=== PATIENT | male | born 1955 | race Caucasian/White ===

== ENCOUNTER 2019-06-19 07:47 | Outpatient (CLI) | payer MEDICARE, SELFPAY ==
[2019-06-19 13:31] LABS: Alanine Aminotransferase 26 U/L (4-50); Albumin Level 4.2 g/dL (3.5-5.1); Alkaline Phosphatase 61 U/L (38-126); Aspartate Amino Transferase 26 U/L (17-59); Bilirubin,Total 0.5 mg/dL (0.2-1.3); Blood Urea Nitrogen 9 mg/dL (9-20); Calcium 9.8 mg/dL (8.4-10.2); Carbon Dioxide 28 mmol/L (22-30); Chloride 94 mmol/L (98-107); Cholesterol 185 mg/dL (0-200); Estimated Glomerular Filt Rate > 60; Glucose 102 mg/dL (75-110); HDL Direct 46 mg/dL; Potassium 5.2 mmol/L (3.4-5.0); Sodium 135 mmol/L (137-145); Triglycerides 110 mg/dL (<150)
[2019-06-19 13:36] LABS: Hemoglobin A1C 5.7 % (<5.7)
[2019-06-19 13:43] LABS: LDL Cholesterol Direct 134 mg/dL
[2019-06-19 14:01] LABS: Prostate Specific Antigen 1.5 ng/mL (< OR = 4.0)
== END 2019-06-19 07:48 | disposition home or self-care (01) ==
LOC: ANHWCLAB 07:49
PROVIDERS: PCP Internal Medicine; Visit Provider Nurse Practitioner
DX: E78.5 Hyperlipidemia, unspecified (principal); Z12.5 Encounter for screening for malignant neoplasm of prostate; R73.02 Impaired glucose tolerance (oral)
CPT/HCPCS: 36415; 80053; 80061; 83036; 84153; G0103

== ENCOUNTER 2019-06-28 09:23 | Outpatient (CLI) | payer MEDICARE, SELFPAY ==
[2019-06-28 13:16] LABS: Blood Urea Nitrogen 5 mg/dL (9-20); Calcium 9.7 mg/dL (8.4-10.2); Carbon Dioxide 28 mmol/L (22-30); Chloride 91 mmol/L (98-107); Estimated Glomerular Filt Rate > 60; Glucose 97 mg/dL (75-110); Sodium 130 mmol/L (137-145)
== END 2019-06-28 09:24 | disposition home or self-care (01) ==
LOC: ANHWCLAB 09:26
PROVIDERS: PCP Internal Medicine; Visit Provider Nurse Practitioner
DX: E87.5 Hyperkalemia (principal)
CPT/HCPCS: 36415; 80048

== ENCOUNTER 2019-12-15 07:45 | Outpatient (CLI) | payer MEDICARE, SELFPAY ==
[2019-12-15 08:23] LABS: Hemoglobin A1C 5.5 % (<5.7)
[2019-12-15 08:26] LABS: Alanine Aminotransferase 31 U/L (4-50); Albumin Level 4.3 g/dL (3.5-5.1); Alkaline Phosphatase 64 U/L (38-126); Anion Gap 11.3 mmol/L (7-16); Aspartate Amino Transferase 31 U/L (17-59); Bilirubin,Total 0.6 mg/dL (0.2-1.3); Blood Urea Nitrogen 3 mg/dL (9-20); Calcium 9.4 mg/dL (8.4-10.2); Carbon Dioxide 26 mmol/L (22-30); Chloride 97 mmol/L (98-107); Cholesterol 139 mg/dL (0-200); Estimated Glomerular Filt Rate > 60; Glucose 111 mg/dL (75-110); HDL Direct 43 mg/dL; Potassium 4.3 mmol/L (3.4-5.0); Sodium 130 mmol/L (137-145); Triglycerides 91 mg/dL (<150)
[2019-12-15 08:37] LABS: LDL Cholesterol Direct 78 mg/dL
[2019-12-15 09:02] LABS: Free T4 Free Thyroxine 1.23 ng/mL (0.78-2.19)
== END 2019-12-15 07:46 | disposition home or self-care (01) ==
LOC: ANHLAB 07:48
PROVIDERS: PCP Internal Medicine; Visit Provider Nurse Practitioner
DX: E03.9 Hypothyroidism, unspecified (principal); R73.02 Impaired glucose tolerance (oral); Z79.899 Other long term (current) drug therapy; E78.2 Mixed hyperlipidemia
CPT/HCPCS: 36415; 80053; 80061; 82248; 83036; 84439; 84443

== ENCOUNTER 2020-05-03 10:39 | Emergency (ER) | payer MEDICARE, SELFPAY ==
--- NOTE | ~2020-05-03 | CT_ITS ---
EXAMINATION: CT brain wo con EXAM DATE: 05/03/2020 12:24 INDICATION: right leg hemiparesis. TECHNIQUE: Spiral CT of the head was performed without contrast. Axial, coronal and sagittal images were reviewed. The dose-length product (DLP) for this examination was 605.33 mGy-cm. The exposure w as tailored according to patient size, and iterative reconstruction (ASIR) was used as additional dos e reduction technique. There is no prior study for comparison. FINDINGS: There is no acute intraparenchymal hemorrhage. No evidence of intraparenchymal brain mass lesion. No evidence of acute infarction. Please note that initial head CT has limited sensitivity f or small or acute infarctions. There is an old small left cerebellar infarction. There is small old right pontine lacunar infarction. There is moderate periventricular and subcortical hypodensity, nons pecific but probably related to small vessel ischemic disease. There is mild prominence of the sulc i and ventricles related to cerebral atrophy. There is intracranial carotid arteriosclerosis. Ther e are no extra-axial collections. There is no mass effect or midline shift. Patient has had bilater al ocular lens surgery. Soft tissue is unremarkable. The visualized sinuses and mastoid air cells a re well aerated. IMPRESSION: 1. No acute intracranial findings. 2. Chronic age related findings. 3. Small old infarctions. Reviewed, dictated and finalized at location A. TECHNICAL ARCHITECT
--- NOTE | ~2020-05-03 | CT_ITS ---
EXAMINATION: CT lumbar spine wo [facility] EXAM DATE: 05/03/2020 12:24 INDICATION: low back pain, right leg weakness TECHNIQUE: Spiral CT of the lumbar spine was performed without contrast. Axial, coronal and sagittal images were reviewed. The dose-length product (DLP) for this examination was 426.05 mGy-cm. The e xposure was tailored according to patient size (auto mA exposure control), and iterative reconstructi on (ASIR) was used as additional dose reduction technique. There is no prior study for comparison. FINDINGS: Moderate disc disease L4-5, mild to moderate at the other lumbar levels. The vertebral bodi es are aligned in the AP dimension. There are no acute fractures identified. No spondylolysis. Partia lly fused sacroiliac joints. Level by level evaluation: T12-L1: There is a minimal diffuse disc bulge. Facet arthropathy: Mild bilateral. Neural foraminal stenosis: No stenosis. Central canal stenosis: No stenosis. L1-L2: There is a mild diffuse disc bulge. Facet arthropathy: Mild bilateral. Neural foraminal stenosis: No stenosis. Central canal stenosis: Mild. L2-L3: There is a mild to moderate diffuse disc bulge. Facet arthropathy: Mild. Neural foraminal stenosis: Moderate right, mild left. Central canal stenosis: Mild to moderate. L3-L4: There is a mild to moderate diffuse disc bulge. Facet arthropathy: Mild to moderate. Neural foraminal stenosis: Mild to moderate left, mild right. Central canal stenosis: Mild to moderate. L4-L5: There is a mild to moderate diffuse disc bulge. Facet arthropathy: Mild to moderate. Neural foraminal stenosis: Mild bilateral. Central canal stenosis: Mild to moderate. L5-S1: There is a mild to moderate diffuse disc bulge. Facet arthropathy: Mild. Neural foraminal stenosis: Mild right. Central canal stenosis: Mild. IMPRESSION: 1. L2-3 moderate right neural foraminal stenosis, the most narrowed level. 2. Otherwise mild to moderate lumbar spondylosis. 3. No acute findings. Reviewed, dictated and finalized at location A. [employer]
[2020-05-03 10:47] VITALS: BP 154/72; PULSE 62; RESP 18; TEMP 36.8; O2SAT 99
[2020-05-03 12:09] LABS: Basophils Percent Auto 0.3 % (0.2-1.2); Eosinophils Absolute Auto 0.1 K/mm3 (0-0.3); Eosinophils Percent Auto 0.4 % (0-4.4); Hematocrit 46.2 % (42.0-52.0); Hemoglobin 16.4 g/dL (14.0-18.0); Immature Granulocyte Absolute 0.07 K/mm3 (0.00-0.031); Immature Granulocyte Percent A 0.6 % (0-0.5); Lymphocytes Absolute Auto 1.44 K/mm3 (0.9-3.2); Lymphocytes Percent Auto 12.4 % (18.3-44.2); Mean Corpuscular HGB Conc 35.5 g/dl (32-36); Mean Corpuscular Hemoglobin 34.2 pg (26-34); Mean Corpuscular Volume 96.5 fl (80-100); Monocytes Percent Auto 8.8 % (2.6-8.5); Neutrophils Percent Auto 77.5 % (45.5-73.1); Platelet Count Result 234 k/mm3 (150-375); Red Blood Count 4.79 M/mm3 (4.6-6.20); Red Cell Distribution Width 12.8 % (11.5-14.5); White Blood Count 11.6 K/mm3 (4.5-10.0)
--- NOTE | 2020-05-03 12:19 | ED.EXTPRO ---
HPI - Extremity Problem General Chief complaint: Extremity Problem,Nontraumatic <Griselda Ayala PA-C - Last Filed: 05/03/20 23:02> Stated complaint: rt leg pain leg won't work <LISA Latif Last Filed: 05/03/20 23:02> Time Seen by Provider: 05/03/20 11:35 <LISA Latif Last Filed: 05/03/20 23:02> Source: patient <LISA Latif Last Filed: 05/03/20 23:02> Mode of arrival: wheelchair <LISA Latif Last Filed: 05/03/20 23:02> Limitations: no limitations <LISA Latif Last Filed: 05/03/20 23:02> History of Present Illness HPI Narrative: This is a 65 year old male that presents to the ER for right leg weakness x 4 days. Reports he is unable to walk. Reports the leg just does not work right and it gives out. Reports he does have some issues with his lower back. Reports tingling in his toes on the right. Is scheduled for an MRI of his lumbar spine on Wednesday, but could not wait. He is currently on steroids and an anti-inflammatory. Denies fever, saddle anesthesia or bowel/bladder incontinence. <LISA Latif Last Filed: 05/03/20 23:02> Related Data Home medications: Home Medications Medication Instructions Recorded Confirmed sildenafil 100 mg tablet 100 mg PO DAILY PRN 06/13/19 05/01/20 <LISA Latif Last Filed: 05/03/20 23:02> Allergies/Adverse reactions: Allergies Allergy/AdvReac Type Severity Reaction Status Date / Time No Known Allergies Allergy Verified 05/01/20 12:26 <LISA Latif Last Filed: 05/03/20 23:02> Review of Systems Review of Systems: Narrative: CONSTITUTIONAL: Denies fever SKIN: Denies rash MUSCULOSKELETAL: Reports joint pain and myalgia NEUROLOGIC: Reports weakness. Denies numbness PSYCHIATRIC: Denies anxiety or depression. <LISA Latif Last Filed: 05/03/20 23:02> All systems reviewed & are unremarkable except as noted in HPI and below <Griselda Ayala PA-C - Last Filed: 05/03/20 23:02> [facility] Past Medical History Medical History: Medical History (Updated 05/04/20 @ 00:00 by Sheila Bush) IGT (impaired glucose tolerance) Mixed hyperlipidemia Thyroid disease <Griselda Ayala PA-C - Last Filed: 05/03/20 23:02> Surgical History Surgical History: Surgical History (Reviewed 06/16/19 @ 07:07 by Edwige Phillips [facility]) History of tonsillectomy <Griselda Ayala PA-C - Last Filed: 05/03/20 23:02> Family History Family History: Family History (Reviewed 06/16/19 @ 07:07 by Edwige Phillips [facility]) Mother Hypertension, Onset Age: 84 Acute myocardial infarction, Onset Age: 84 Family history of Alzheimer's disease, Onset Age: 84 Patient's mother is , Onset Age: 84 <Griselda Ayala PA-C - Last Filed: 05/03/20 23:02> Social History Social History: Social History (Reviewed 06/16/19 @ 07:07 by Edwige Phillips [facility]) Smoking status: Current every day smoker (pack aday) Alcohol intake: current <Griselda Ayala PA-C - Last Filed: 05/03/20 23:02> Exam Narrative: Exam Narrative: GENERAL: Well-appearing, well-nourished, and in no acute distress. HEAD: Normocephalic, atraumatic. EYES: PERRLA and EOMI. ENT: Nares clear, no rhinorrhea or epistaxis. Mucous membranes moist. Oropharynx without tonsillar hypertrophy exudate or other lesions. Bilateral TMs pearly garcia non-bulging NECK: Supple. No adenopathy or masses. CHEST: Clear to auscultation. No respiratory distress. No wheezes rales or rhonchi HEART: Regular rate and rhythm. No murmur heard. Normal peripheral pulses. BACK: No midline spinal tenderness EXTREMITIES: Normal range of motion. No edema. Strength equal in bilateral lower extremities (5/5). Normal patellar reflexes bilaterally SKIN: Warm, dry, no rash. NEURO: No focal deficits. Alert and oriented x3. PSYCH: Normal mood and affect <Griselda Ayala PA-C - Last Filed: 05/03/20 23
[2020-05-03 12:36] LABS: Erythrocyte Sedimentation Rate 16 mm/hr (0-20)
[2020-05-03 12:38] LABS: CRP < 0.5 mg/dL (<1.0)
[2020-05-03 12:58] LABS: Anion Gap 10 mmol/L (8-16); Blood Urea Nitrogen 16 mg/dL (9-20); Calcium 9.6 mg/dL (8.4-10.2); Carbon Dioxide 26 mmol/L (22-30); Chloride 97 mmol/L (98-107); Estimated CRCL calculation 79 ml/min; Estimated Glomerular Filt Rate > 60; Glucose 88 mg/dL (75-110); Sodium 133 mmol/L (137-145)
[2020-05-03 13:37] VITALS: BP 163/87; PULSE 78; RESP 18; O2SAT 99
[2020-05-03 14:37] VITALS: BP 148/72; PULSE 80; RESP 18; O2SAT 99
--- NOTE | 2020-05-03 15:39 | PC.NURSE ---
[facility] accepted transfer to [place] ETA 1730 ETA [id number]
--- NOTE | 2020-05-03 16:01 | PC.NURSE ---
report called to [facility]. felicia called for transport
--- NOTE | 2020-05-03 17:45 | PC.NURSE ---
New ETA for [facility] 1830
--- NOTE | 2020-05-03 19:01 | PC.NURSE ---
patient asking various staff members why he has not left the er. explained that a private ambulance company is being used and we have no control of their arrival time
[2020-05-03 19:09] VITALS: BP 150/85; PULSE 59; RESP 18; O2SAT 98
--- NOTE | 2020-05-03 19:18 | PC.NURSE ---
New ETA for [facility] is 1944
--- NOTE | 2020-05-03 19:27 | PC.NURSE ---
[facility] called with updated ETA....2015?
--- NOTE | 2020-05-03 20:30 | PC.NURSE ---
[facility] called with another updated ETA...2130.
--- NOTE | 2020-05-03 21:16 | PC.NURSE ---
[facility] called with updated ETA...[id number] due to call volume exceeding availability
[2020-05-03 22:30] VITALS: BP 147/57; PULSE 58; RESP 16; O2SAT 99
== END 2020-05-03 22:52 | disposition short-term general hospital (02) ==
PROVIDERS: Physician Assistant; Emergency Provider General Practice; PCP Internal Medicine
DX: M48.061 Spinal stenosis, lumbar region without neurogenic claudication (principal); E78.2 Mixed hyperlipidemia; E07.9 Disorder of thyroid, unspecified; F17.210 Nicotine dependence, cigarettes, uncomplicated; M47.816 Spondylosis without myelopathy or radiculopathy, lumbar region
CPT/HCPCS: 36415; 70450; 72131; 80048; 85025; 85652; 86140; 99285

== ENCOUNTER 2020-06-03 09:22 | Outpatient (CLI) | payer MEDICARE, SELFPAY ==
[2020-06-03 10:01] LABS: Hemoglobin A1C 5.6 % (<5.7)
[2020-06-03 10:02] LABS: Alanine Aminotransferase 31 U/L (4-50); Albumin Level 4.2 g/dL (3.5-5.1); Alkaline Phosphatase 53 U/L (38-126); Anion Gap 5 mmol/L (8-16); Aspartate Amino Transferase 28 U/L (17-59); Bilirubin,Total 0.5 mg/dL (0.2-1.3); Blood Urea Nitrogen 8 mg/dL (9-20); Calcium 9.6 mg/dL (8.4-10.2); Carbon Dioxide 29 mmol/L (22-30); Chloride 99 mmol/L (98-107); Cholesterol 140 mg/dL (0-200); Estimated Glomerular Filt Rate > 60; Glucose 104 mg/dL (75-110); HDL Direct 44 mg/dL; Potassium 4.2 mmol/L (3.4-5.0); Sodium 133 mmol/L (137-145); Triglycerides 96 mg/dL (<150)
[2020-06-03 10:12] LABS: LDL Cholesterol Direct 75 mg/dL
[2020-06-03 10:35] LABS: Prostate Specific Antigen 1.4 ng/mL (< OR = 4.0)
== END 2020-06-03 09:23 | disposition home or self-care (01) ==
PROVIDERS: PCP Internal Medicine; Visit Provider Internal Medicine
DX: R73.03 Prediabetes (principal); Z79.899 Other long term (current) drug therapy; E03.9 Hypothyroidism, unspecified; Z12.5 Encounter for screening for malignant neoplasm of prostate; E78.5 Hyperlipidemia, unspecified
CPT/HCPCS: 36415; 80053; 80061; 83036; 84153; 84443; G0103

== ENCOUNTER 2020-12-18 07:00 | Outpatient (CLI) | payer MEDICARE, SELFPAY ==
[2020-12-18 08:03] LABS: Alanine Aminotransferase 27 U/L (4-50); Albumin Level 4.5 g/dL (3.5-5.1); Alkaline Phosphatase 49 U/L (38-126); Anion Gap 8 mmol/L (8-16); Aspartate Amino Transferase 34 U/L (17-59); Bilirubin,Total 0.6 mg/dL (0.2-1.3); Blood Urea Nitrogen 8 mg/dL (9-20); Calcium 9.6 mg/dL (8.4-10.2); Carbon Dioxide 26 mmol/L (22-30); Chloride 98 mmol/L (98-107); Cholesterol 161 mg/dL (0-200); Estimated Glomerular Filt Rate > 60; Glucose 102 mg/dL (65-110); HDL Direct 52 mg/dL; Potassium 4.2 mmol/L (3.4-5.0); Sodium 132 mmol/L (137-145); Triglycerides 109 mg/dL (<150)
[2020-12-18 08:13] LABS: LDL Cholesterol Direct 84 mg/dL
[2020-12-18 10:36] LABS: Hemoglobin A1C 5.7 % (<5.7)
== END 2020-12-18 07:01 | disposition home or self-care (01) ==
PROVIDERS: PCP Internal Medicine; Visit Provider Nurse Practitioner
DX: E78.00 Pure hypercholesterolemia, unspecified (principal); R73.02 Impaired glucose tolerance (oral)
CPT/HCPCS: 36415; 80053; 80061; 83036

== ENCOUNTER 2021-06-25 08:16 | Outpatient (CLI) | payer MEDICARE, SELFPAY ==
[2021-06-25 08:49] LABS: Alanine Aminotransferase 26 U/L (4-50); Albumin Level 4.5 g/dL (3.5-5.1); Alkaline Phosphatase 59 U/L (38-126); Anion Gap 12 mmol/L (8-16); Aspartate Amino Transferase 29 U/L (17-59); Bilirubin,Total 0.6 mg/dL (0.2-1.3); Blood Urea Nitrogen 9 mg/dL (9-20); Calcium 9.6 mg/dL (8.4-10.2); Carbon Dioxide 26 mmol/L (22-30); Chloride 99 mmol/L (98-107); Cholesterol 147 mg/dL (0-200); Estimated Glomerular Filt Rate > 60; Glucose 112 mg/dL (65-110); HDL Direct 47 mg/dL; Potassium 4.1 mmol/L (3.4-5.0); Sodium 137 mmol/L (137-145); Triglycerides 98 mg/dL (<150)
[2021-06-25 08:54] LABS: Hemoglobin A1C 5.4 % (<5.7)
[2021-06-25 08:59] LABS: LDL Cholesterol Direct 77 mg/dL
[2021-06-25 09:20] LABS: Prostate Specific Antigen 1.6 ng/mL (< OR = 4.0)
== END 2021-06-25 08:17 | disposition home or self-care (01) ==
PROVIDERS: PCP Internal Medicine; Visit Provider Nurse Practitioner
DX: E78.00 Pure hypercholesterolemia, unspecified (principal); R73.02 Impaired glucose tolerance (oral); Z12.5 Encounter for screening for malignant neoplasm of prostate; E03.9 Hypothyroidism, unspecified
CPT/HCPCS: 36415; 80053; 80061; 83036; 84153; 84443; G0103

== ENCOUNTER 2021-12-25 07:19 | Outpatient (CLI) | payer MEDICARE, SELFPAY ==
[2021-12-25 08:28] LABS: Alanine Aminotransferase 25 U/L (6-50); Albumin Level 4.4 g/dL (3.5-5.1); Alkaline Phosphatase 58 U/L (38-126); Anion Gap 11 mmol/L (8-16); Aspartate Amino Transferase 30 U/L (17-59); Bilirubin,Total 0.5 mg/dL (0.2-1.3); Blood Urea Nitrogen 8 mg/dL (9-20); Calcium 9.6 mg/dL (8.4-10.2); Carbon Dioxide 27 mmol/L (22-30); Chloride 97 mmol/L (98-107); Cholesterol 154 mg/dL (0-200); Estimated Glomerular Filt Rate > 60; Glucose 116 mg/dL (65-110); HDL Direct 47 mg/dL; Potassium 4.1 mmol/L (3.4-5.0); Sodium 135 mmol/L (137-145); Triglycerides 113 mg/dL (<150)
[2021-12-25 08:39] LABS: LDL Cholesterol Direct 75 mg/dL
[2021-12-25 08:41] LABS: Hemoglobin A1C 5.4 % (<5.7)
== END 2021-12-25 07:20 | disposition home or self-care (01) ==
PROVIDERS: PCP Internal Medicine; Visit Provider Internal Medicine
DX: E03.9 Hypothyroidism, unspecified (principal); E78.5 Hyperlipidemia, unspecified; R73.02 Impaired glucose tolerance (oral); I10 Essential (primary) hypertension; Z79.899 Other long term (current) drug therapy
CPT/HCPCS: 36415; 80053; 80061; 83036; 84443

== ENCOUNTER 2022-03-23 02:10 | Day surgery (SDC) | payer MEDICARE, SELFPAY ==
[2022-03-17 15:02] VITALS: BMI 25.2
--- NOTE | 2022-03-17 15:09 | PC.NURSE ---
Report to the Outpatient Waiting Room, entrance under the green pavilion located off [facility], at time ___0830____ on date _03/23/22 . Planned Procedure Time: ____1030____. Time changes happen often and if your time is changed the preop area will call you the afternoon before. - You and your visitor will be asked to self-screen and do not enter if you have any COVID symptoms. - We encourage only one visitor and NO visitors under age 16 are allowed at this time. Your visitor will receive communication by the phone number that is given day of service. - The patient visitor is requested to social distance or may leave the building when not with patient due to restrictions. - A mask is required within the hospital. Patients may have clear liquids (water, carbonated beverages, clear teas, apple juice) until 3 hours prior to surgery (0730 AM) with a maximum of 20 ounces. - No food from midnight until time of surgery - Infants may have breast milk until 4 hours before surgery, infant formula 6 hours prior to surgery. - Children will be allowed to drink immediately following surgery. If applicable, please bring a bottle or sippy cup to assist with drinking. Juice, water, soda, and popsicles are readily available. For infants on formula, please bring formula the day of surgery. Pacifiers are allowed. Take the following medications with a SIP of water the morning of surgery: __AMLODIPINE, LEVOTHYROXINE__ Medications to discontinue per physician N/A Date to take last dose Please no make-up, nail danish, hairspray, perfume, deodorant, or body powder the day of surgery. No jewelry (including any body piercings) or valuables the day of surgery, leave them at home. Please take a shower or bath the night before, or the morning of, surgery with an antibacterial soap. Wear comfortable, loose fitting clothing. Children are encouraged to wear pajamas. - Jewelry must be removed prior to entering the operating room. Rings and piercings that are not removed may be cut off. - The hospital will not accept responsibility for valuables. - Please leave all valuables, including medications, at home the day of surgery. If you are going home after surgery, a licensed clamp truck driver must drive you home. - NO public transportation without another adult. - We recommend that an adult stay with you for 24 hours following discharge. - We also recommend that you do not drive, make important decision, drink alcoholic beverages, or take any drugs that were not prescribed by your health care provider for at least 24 hours after your discharge time. For Pediatric surgeries, we recommend two adults accompany the child home. Follow any additional instructions given to you from your surgeon. If you or anyone in your household have experienced Covid symptoms in the past week, please notify your surgeon or the nurse liaison at the phone number below for possible testing. Telephone instructions given to ____PT'S SPOUSE (MARIE) and asked if any additional questions and then verbalized understanding. Patient advised to call surgeon office or pre surgery nurse liaison [phone] if any additional questions.
[2022-03-23 08:46] VITALS: BP 134/89; PULSE 83; RESP 16; TEMP 36.4; O2SAT 100
--- NOTE | 2022-03-23 08:55 | WPDHPUPDATE1 ---
History and Physical Update Update Date/Time: 03/23/22 08:55 History and Physical has been reviewed, including an updated exam of the patient. There are NO changes in the patient's condition. Risks, benefits, and alternatives have been discussed and questions answered. Patient agrees to proceed with procedure.
--- NOTE | 2022-03-23 09:57 | WPDANESEPPF ---
Anes - Initial Pre Proc Eval Procedure: Operation Date: 03/23/22 10:30 Proposed Procedures p Excisional Biopsy Mid Upper Back Sebaceous Cyst - Alivia Rowan MD Date/Time: 03/23/22 09:57 Surgeon: Alivia Rowan MD Pre Op Diagnosis: sebaceous cyst on back Patient Data Age: 67 Gender: M Height: 1.85 m Weight: 86 kg Last Vital Signs Temp 36.4 C L 03/23/22 08:46 Pulse 83 03/23/22 08:46 Resp 16 03/23/22 08:46 BP 134/89 03/23/22 08:46 Pulse Ox 100 03/23/22 08:46 O2 Del Method Room Air 03/23/22 08:46 Allergies Allergy/AdvReac Type Severity Reaction Status Date / Time No Known Allergies Allergy Verified 03/23/22 09:17 Home Medications Medication Instructions Recorded Confirmed Type sildenafil 100 mg tablet (Viagra) 100 mg PO DAILY PRN Edema 06/13/19 03/17/22 History aspirin 81 mg tablet,delayed 81 mg PO DAILY 06/20/20 03/23/22 History release (Adult Aspirin Regimen) levothyroxine 88 mcg tablet 88 mcg PO DAILY #90 tabs 12/01/21 03/23/22 Rx (Synthroid) rosuvastatin 20 mg tablet See Rx Instructions .Route 12/01/21 03/23/22 Rx .COMPLEX #90 tabs amlodipine 5 mg tablet 5 mg PO DAILY #90 tabs 03/03/22 03/23/22 Rx Patient hx anesthesia problems: none Family hx anesthesia problems: none Results Review: All pre-operative results and documents have been reviewed as part of the pre-operative evaluation. [facility] Past Medical History Medical History (Updated 03/16/22 @ 14:51 by Lori Nye [facility]) CVA (cerebral vascular accident) Multiple punctate infarcts on MRI Hypertension IGT (impaired glucose tolerance) Mixed hyperlipidemia Thyroid disease Surgical History Surgical History H/O neck surgery History of tonsillectomy Family History Family History Mother Hypertension, Onset Age: 84 Acute myocardial infarction, Onset Age: 84 Family history of Alzheimer's disease, Onset Age: 84 Patient's mother is , Onset Age: 84 Father Acute myocardial infarction Cerebrovascular accident Hypertension Social History Social History Smoking packs per day: 0.03 Smoking cigarettes per day: 0.6 Years smoked: 50 Smoking pack-years: 1.50 Smoking status: Current every day smoker Tobacco type: cigarettes Second hand tobacco smoke exposure: Yes Alcohol intake: current Drinks per week: 6 Substance use: never Substance use type: does not use Living arrangements: with family Gender identity (if verbalized by the patient): Male Sexual Orientation (if Verbalized by the Patient): Straight or Heterosexual Spiritual care concerns: No Anes - Eval Final PreProcedure Day of Procedure 03/23/22 09:57 Patient weight: normal Heart: regular rate and rhythm Lungs: clear to auscultation and normal air movement Airway: Mallampati scale class II Neurological: alert and oriented Last oral intake: >/= 8 hours ASA classification: III Emergent: no Anesthetic plan: proceed Anesthesia type and monitoring: general GIVS and standard monitoring Results Review: All pre-operative results and documents have been reviewed as part of the pre-operative evaluation. Informed Consent: The patient's anesthetic plan and its attendant risks and benefits were discussed with the patient/family/POA. Questions were solicited and answers provided to the satisfaction of the patient/family/POA.
[2022-03-23] MEDS: LACTATED RINGERS 1,000 ML 30 ML IV CONT (10:14)
[2022-03-23] MEDS: ceFAZolin 2 GM/D5W 50 ML 2 GM/50 ML BAG IVPB (10:18)
[2022-03-23] MEDS: BUPIVACAINE/EPINEPHRINE 0.25% 50 ML VIAL INFILTRATE (10:45)
[2022-03-23 10:53] VITALS: BP 89/54; PULSE 53; RESP 16; O2SAT 100
--- NOTE | 2022-03-23 11:19 | W.PM.PROC2 ---
Procedure Note - Detailed Date of Procedure 03/23/22 Pre-op Diagnosis chronic abscess mid upper back Post-op Diagnosis Same Procedure Performed excisional biopsy chronic abscess cavity mid upper back, likely infected sebaceous cyst measuring approximately 3 x 3 cm Surgeon Alivia Rowan MD Anesthesia MAC and Local Indications 67-year-old male presenting to the office with a chronic abscess of his mid upper back. The patient had previous drainage by PCP however continued to have pain and drainage in the area. Findings Chronic abscess cavity likely infected sebaceous cyst measuring approximately 3 x 3 cm Description of Procedure The patient was taken the operating room and placed in the lateral position. After adequate induction of MAC anesthesia, the patient was prepped and draped in the normal sterile fashion. A time-out was then done to verify the patient's identity, as well as procedure being performed. I began by localizing the area. A elliptical incision was made around the abscess cavity, the middle of which was draining some purulent material. The incision was taken down through the dermis into the subcutaneous tissue. I was able to excise the entire cavity, which was likely an infected ruptured sebaceous cyst. The specimen wound was sent to pathology for further review. Hemostasis was gained with Bovie cautery. No other pathology was a noted in the area. I then copiously irrigated the wound. The incision was then closed with 3-0 nylon sutures in a interrupted vertical mattress fashion. The patient tolerated the procedure well and was alert and awake in the operating room postoperative. He was sent to the recovery room in stable condition. Estimated Blood Loss 5 Drains No Packing No Pathology Yes Complications No immediate complications Condition Stable Disposition PACU [facility] Billing Surgery - Charge Forward: Surgery Billing
[2022-03-23 11:20] VITALS: BP 118/72; PULSE 66; RESP 14
[2022-03-23 11:40] VITALS: BP 104/71; PULSE 52; RESP 16
== END 2022-03-23 11:49 | disposition home or self-care (01) ==
PROVIDERS: PCP Internal Medicine; Visit Provider Surgery
PROC: (CPT 11406; principal; 2022-03-23 10:30)
DX: L72.3 Sebaceous cyst (principal); I10 Essential (primary) hypertension; E78.2 Mixed hyperlipidemia; E07.9 Disorder of thyroid, unspecified; Z86.73 Personal history of transient ischemic attack (TIA), and cerebral infarction without residual deficits; Z79.82 Long term (current) use of aspirin; F17.210 Nicotine dependence, cigarettes, uncomplicated
CPT/HCPCS: 11406; 12032; 88305; J0690; J1100; J1165; J2250; J2405; J2704; J3010; J7120

== ENCOUNTER 2022-07-07 07:15 | Outpatient (CLI) | payer MEDICARE, SELFPAY ==
[2022-07-07 08:03] LABS: Alanine Aminotransferase 26 U/L (6-50); Albumin Level 4.6 g/dL (3.5-5.1); Alkaline Phosphatase 59 U/L (38-126); Anion Gap 5 mmol/L (8-16); Aspartate Amino Transferase 28 U/L (17-59); Bilirubin,Total 0.5 mg/dL (0.2-1.3); Blood Urea Nitrogen 7 mg/dL (9-20); Calcium 9.2 mg/dL (8.4-10.2); Carbon Dioxide 27 mmol/L (22-30); Chloride 99 mmol/L (98-107); Cholesterol 148 mg/dL (0-200); Estimated Glomerular Filt Rate > 60; Glucose 114 mg/dL (65-110); HDL Direct 48 mg/dL; Potassium 4.2 mmol/L (3.4-5.0); Sodium 131 mmol/L (137-145); Triglycerides 80 mg/dL (<150)
[2022-07-07 08:14] LABS: LDL Cholesterol Direct 70 mg/dL
[2022-07-07 08:31] LABS: Free T4 Free Thyroxine 1.46 ng/mL (0.78-2.19)
== END 2022-07-07 07:16 | disposition home or self-care (01) ==
PROVIDERS: PCP Internal Medicine; Visit Provider Nurse Practitioner
DX: E03.9 Hypothyroidism, unspecified (principal); E78.5 Hyperlipidemia, unspecified
CPT/HCPCS: 36415; 80053; 80061; 84439; 84443

== ENCOUNTER 2023-01-12 07:10 | Outpatient (CLI) | payer MEDICARE, SELFPAY ==
[2023-01-12 07:40] LABS: Alanine Aminotransferase 28 U/L (6-50); Albumin Level 4.4 g/dL (3.5-5.1); Alkaline Phosphatase 56 U/L (38-126); Anion Gap 6 mmol/L (8-16); Aspartate Amino Transferase 31 U/L (17-59); Bilirubin,Total 0.6 mg/dL (0.2-1.3); Blood Urea Nitrogen 4 mg/dL (9-20); Calcium 9.2 mg/dL (8.4-10.2); Carbon Dioxide 29 mmol/L (22-30); Chloride 100 mmol/L (98-107); Cholesterol 142 mg/dL (0-200); Estimated Glomerular Filt Rate > 60; Glucose 111 mg/dL (65-110); HDL Direct 45 mg/dL; Potassium 4.2 mmol/L (3.4-5.0); Sodium 135 mmol/L (137-145); Triglycerides 80 mg/dL (<150)
[2023-01-12 07:50] LABS: Hemoglobin A1C 5.4 % (<5.7)
[2023-01-12 07:52] LABS: LDL Cholesterol Direct 76 mg/dL
== END 2023-01-12 07:11 | disposition home or self-care (01) ==
LOC: ANHLAB 07:12
PROVIDERS: PCP Nurse Practitioner; Visit Provider Nurse Practitioner
DX: E03.9 Hypothyroidism, unspecified (principal); E78.5 Hyperlipidemia, unspecified; R73.02 Impaired glucose tolerance (oral)
CPT/HCPCS: 36415; 80053; 80061; 83036; 84443

== ENCOUNTER 2023-06-25 03:21 | Observation (INO) | payer MEDICARE, SELFPAY ==
[2023-06-25] VITALS (37 sets, daily range): BP systolic 114–151; BP diastolic 60–90; PULSE 56–106; RESP 15–24; TEMP 36.2–37.1; O2SAT 97–100
--- NOTE | 2023-06-25 | ECHO_ITS ---
Patient Info Name: Nemesio Law Age: 68 years : 1955 Gender: Male Ht: 72 in Wt: 194 lbs BSA: 2.13 m2 HR: 78 bpm BP: 151 / 90 mmHg Heart Rhythm: Sinus Rhythm Technical Quality: Fair Exam Date: 06/25/2023 9:50 AM Exam Location: Echo Lab Exam Room: [facility] Patient Status: Inpatient Admit Date: 06/25/2023 Staff Ordering Physician: Rasheeda Silveira APRN Chief Embalmer: Cassandra Paul RDCS Attending Provider: Mariza Suazo DO Referring Physician: Jordana PERERA; Exam Type: CA echo doppler color flow Study Info Indications - chest pain Complete two-dimensional, color flow and Doppler transthoracic echocardiogram is performed. Summary 1. Complete two-dimensional, color flow and Doppler transthoracic echocardiogram is performed. 2. Left ventricular chamber dimension is normal. 3. Left ventricular systolic function is normal, estimated at 65-70%. 4. There is no increased left ventricular wall thickness. 5. The left ventricular diastolic function is grade I diastolic dysfunction. 6. There is mild aortic valve sclerosis. 7. There is mild mitral valve regurgitation. 8. There is mild tricuspid valve regurgitation. Left Ventricle Left ventricular chamber dimension is normal. Left ventricular systolic function is normal, estimated at 65-70%. There is no increased left ventricular wall thickness. The left ventricular diastolic function is grade I diastolic dysfunction. Right Ventricle Right ventricular chamber dimension is normal. Right ventricular systolic function is normal. Left Atria Left atrial chamber dimension is normal. Right Atria Right atrial chamber dimension is normal. Atrial Septum Intact interatrial septum visualized by color flow imaging. Aortic Valve The aortic valve is trileaflet. There is mild aortic valve sclerosis. There is no aortic valve stenosis. There is trace aortic valve regurgitation. Pulmonic Valve The pulmonic valve is normal. There is no pulmonic valve stenosis. There is trace pulmonic regurgitation. Mitral Valve The mitral valve has normal leaflets. There is no mitral valve stenosis. There is mild mitral valve regurgitation. Tricuspid Valve The tricuspid valve leaflets are normal. There is no significant tricuspid valve stenosis. There is mild tricuspid valve regurgitation. No pulmonary hypertension, estimated pulmonary arterial systolic pressure is 32 mmHg. Pericardium/Pleural The pericardium appears normal. There is no pericardial effusion. Inferior Vena Cava Normal inferior vena cava with >50% collapse upon inspiration consistent with normal right atrial pressure, 10 mmHg. Aorta The aortic root size at the sinus of Valsalva is normal. Left Ventricular Outflow Tract Name Value Normal LVOT 2D LVOT Diameter 2.1 cm LVOT Doppler LVOT Peak Gradient 5 mmHg LVOT Mean Gradient 3 mmHg LVOT VTI 22 cm LVOT VTI/AV VTI Ratio 0.8 LVOT Stroke Volume 80 ml LVOT CO 17.4 l/min LVOT CI 8.2 l/min/m2 Pulmonic Valve
--- NOTE | ~2023-06-25 | XR_ITS ---
Clinical Indication: Chest pain PA and lateral views of the chest: Comparison: None Findings: The lungs are clear, without evidence of focal consolidation or pleural effusion. Cardiome diastinal silhouette is within normal limits. Bones and soft tissues are unremarkable. Impression: Normal chest. Reviewed, dictated and finalized at location . [employer] Impression: Normal chest.
--- NOTE | ~2023-06-25 | CT_ITS ---
EXAMINATION: CTA chest PE protocol DATE: 06/25/2023 12:09 INDICATION: Shortness of breath and chest tightness TECHNIQUE: Computed tomography (CT) pulmonary angiogram of the chest was performed with 100 mL Omnipa que-350 intravenous contrast. Additional 3D reconstructions utilizing coronal maximum intensity proje ction (MIP) were performed. Automated exposure control and iterative reconstruction technique were em ployed. The dose-length product was 391.62 mGy-cm. COMPARISON: None FINDINGS: Diagnostic study study demonstrating no pulmonary embolism. 7 mm right lower lobe nodule. Small bleb at the right apex. No pneumonia, pulmonary edema or pleural effusion. Heart size is normal. No perica rdial effusion. Atherosclerotic coronary artery calcification. Normal caliber abdominal aorta with no dissection. No pathologically enlarged thoracic lymphadenopathy. Mild thoracic spondylosis. Partiall y visualized C6-C7 anterior spinal fusion with plate and screw fixation. IMPRESSION: 1. No pulmonary embolism or other acute cardiopulmonary disease. 2. 7 mm right lower lobe nodule. Would recommend 6-12 month follow-up low-dose noncontrast chest CT. Reviewed, dictated and finalized at location A. [employer] HEL[employer]
--- NOTE | ~2023-06-25 | US_ITS ---
EXAMINATION: US venous doppler [facility] DATE: 06/25/2023 12:26 INDICATION: Chest pain and shortness of breath TECHNIQUE: Beasley scale images without and with compression and Doppler images of the bilateral lower e xtremity veins were obtained. COMPARISON: None FINDINGS: The right common femoral vein, profunda femoral vein, femoral vein, popliteal vein, peroneal trunk, p osterior tibial veins, and greater saphenous vein are patent. The left common femoral vein, profunda femoral vein, femoral vein, popliteal vein, peroneal trunk, po sterior tibial veins, and greater saphenous vein are patent. IMPRESSION: 1. Patent bilateral lower extremity veins. No evidence of deep venous thrombosis. Reviewed, dictated and finalized at location A. [employer] TECHNICIAN IMPRESSION: 1. Patent bilateral lower extremity veins. No evidence of deep venous thrombosi s.
--- NOTE | ~2023-06-25 | NM_ITS ---
EXAMINATION: NM bebeto stress w perfusion DATE: 06/28/2023 12:17 INDICATION: Chest pain TECHNIQUE: Rest images were obtained following intravenous administration of 9.8 mCi Tc99m tetrofosmi n (Myoview). The patient was infused intravenously with Lexiscan (Regadenoson). Then, 30 mCi Tc99m te trofosmin (Myoview) was administered intravenously, and stress images were obtained. Data was reconst ructed into short axis and horizontal and vertical long axis SPECT images. Gated SPECT images were al so obtained. COMPARISON: None. FINDINGS: There is no definite reversible or fixed perfusion abnormality to suggest ischemia or infar ction. There is normal left ventricular chamber size, wall motion and ejection fraction. Left ventr icular ejection fraction measures >70%. IMPRESSION: 1. Normal myocardial perfusion at rest and during stress. 2. Left ventricular ejection fraction measuring >70%. Reviewed, dictated and finalized at location A. [employer] ADMINISTRATIVE ASSISTANT
--- NOTE | 2023-06-25 03:34 | ECG_ITS ---
Measurements Intervals Posey Rate: 91 P: 54 OK: 177 QRS: 34 QRSD: 94 T: 58 QT: 365 QTc: 451 Interpretive Statements SINUS RHYTHM WITH OCCASIONAL SUPRAVENTRICULAR PREMATURE COMPLEXES BORDERLINE ECG NO PREVIOUS ECG AVAILABLE FOR COMPARISON Electronically Signed On 06-25-2023 15:15:49 BUSINESS INTELLIGENCE ADMINISTRATOR by Garrison Hoang M.D.
[2023-06-25 03:42] LABS: Basophils Absolute Auto 0.1 K/mm3 (0.0-0.1); Basophils Percent Auto 0.8 % (0.2-1.2); Eosinophils Absolute Auto 0.4 K/mm3 (0-0.3); Eosinophils Percent Auto 4.4 % (0-4.4); Hematocrit 45.3 % (42.0-52.0); Hemoglobin 15.7 g/dL (14.0-18.0); Immature Granulocyte Absolute 0.03 K/mm3 (0.00-0.031); Immature Granulocyte Percent A 0.4 % (0-0.5); Lymphocytes Absolute Auto 2.03 K/mm3 (0.9-3.2); Lymphocytes Percent Auto 23.7 % (18.3-44.2); Mean Corpuscular HGB Conc 34.7 g/dl (32-36); Mean Corpuscular Hemoglobin 32.4 pg (26-34); Mean Corpuscular Volume 93.6 fl (80-100); Mean Platelet Volume 9.3 fl (7.4-10.4); Monocytes Absolute Auto 0.7 K/mm3 (0.1-0.6); Monocytes Percent Auto 7.9 % (2.6-8.5); Neutrophils Absolute Auto 5.4 K/mm3 (1.3-6.7); Neutrophils Percent Auto 62.8 % (45.5-73.1); Platelet Count Result 266 k/mm3 (150-375); Red Blood Count 4.84 M/mm3 (4.6-6.20); White Blood Count 8.6 K/mm3 (4.5-10.0)
--- NOTE | 2023-06-25 03:47 | ED.CHESTPAIN ---
HPI - Chest Pain General Chief Complaint: Chest Pain Stated Complaint: CHEST DISCOMFORT X 4 DAYS Source: patient and family Limitations: no limitations History of Present Illness HPI narrative: Patient is a 68-year-old male presents to the emergency department accompanied by his significant other for chest pain. Patient states he has been having chest pain on and off on the left side of his chest for the past 1 week to 10 days and with, with exertion and better with rest and also he was feeling short of breath with exertion. patient denies any history is in the past. Patient notes that he was asleep tonight 1 or 2 through the appy woke up with the pain, also felt diaphoretic, describes the pain as dull, nonradiating tight, constant, patient was given 2 nitros and aspirin and rope by EMS did not and relief with this. Patient admits to history of hypertension, hyperlipidemia, tobacco use, CVA. Patient denies family history of heart disease at a young age. Patient denies diabetes. Patient denies history of cardiac evaluation patient denies history of blood clots. Patient denies unilateral lower extremity swelling, new cough, fever, recent injuries, recent illness, numbness, weakness, abdominal pain, nausea, vomiting, diarrhea, melena, hematochezia, urinary discomfort, palpitations, sore throat, nasal congestion. Patient denies any new or change medications and is taking all his medications as prescribed. Related Data Home Medications Medication Instructions Recorded Confirmed aspirin 81 mg tablet,delayed 81 mg PO DAILY 06/20/20 01/19/23 release (Adult Aspirin Regimen) Allergies Allergy/AdvReac Type Severity Reaction Status Date / Time No Known Allergies Allergy Verified 01/19/23 12:51 Review of Systems Review of Systems: A 10 system review of systems was completed on the patient and is negative except for what is stated in the HPI. Nursing and ancillary documentation was reviewed. [facility] Past Medical History Medical History Chronic pain of right lower extremity CVA (cerebral vascular accident) Multiple punctate infarcts on MRI Hypertension IGT (impaired glucose tolerance) Mixed hyperlipidemia Thyroid disease Surgical History Surgical History H/O neck surgery History of epidermal inclusion cyst excision Excisional biopsy of mid upper back sebacous cyst on 03/23/22 History of tonsillectomy Family History Family History Mother Hypertension, Onset Age: 84 Acute myocardial infarction, Onset Age: 84 Family history of Alzheimer's disease, Onset Age: 84 Patient's mother is , Onset Age: 84 Father Acute myocardial infarction Cerebrovascular accident Hypertension Social History Social History Smoking packs per day: 0.03 Smoking cigarettes per day: 0.6 Years smoked: 50 Smoking pack-years: 1.50 Smoking status: Current every day smoker Tobacco type: cigarettes Second hand tobacco smoke exposure: Yes Alcohol intake: current Drinks per week: 6 Substance use: never Substance use type: does not use Lack of Transportation: No Lack of Food: Never True Current Housing: I Have Housing Concerned About Future Housing: No Difficulty Paying Gas/Electric Bills: No Difficulty Paying for Meds: No Currently Unemployed: No Education: High School Diploma/GED Difficulty w/ Childcare or Family Care: No Living arrangements: with family Occupation/Education: retired Gender identity (if verbalized by the patient): Male Sexual Orientation (if Verbalized by the Patient): Straight or Heterosexual Spiritual care concerns: No Comments At time of signature, I have reviewed and agree with nursing past medical, surgical, social and famil
[2023-06-25 03:52] LABS: Alanine Aminotransferase 21 U/L (6-50); Albumin Level 4.2 g/dL (3.5-5.1); Alkaline Phosphatase 67 U/L (38-126); Anion Gap 9 mmol/L (8-16); Aspartate Amino Transferase 31 U/L (17-59); Bilirubin,Total 0.8 mg/dL (0.2-1.3); Blood Urea Nitrogen 12 mg/dL (9-20); Calcium 9.4 mg/dL (8.4-10.2); Carbon Dioxide 25 mmol/L (22-30); Chloride 99 mmol/L (98-107); Estimated CRCL calculation 74 ml/min; Estimated Glomerular Filt Rate > 60; Glucose 117 mg/dL (65-110); Lipase 116 U/L (23-300); Potassium 3.9 mmol/L (3.4-5.0); Sodium 133 mmol/L (137-145)
[2023-06-25 04:00] LABS: Prothrombin Time 13.1 Seconds (11.1-14.7)
[2023-06-25 04:01] LABS: Partial Thromboplastin Time 30.6 SECONDS (22.3-36.8)
[2023-06-25 04:03] LABS: Magnesium 2.4 mg/dL (1.6-2.3)
[2023-06-25 04:04] LABS: Troponin I < 0.012 ng/mL (0.000-0.034)
[2023-06-25 04:29] LABS: D Dimer 0.48 ug/mL (<0.48)
[2023-06-25 05:17] LABS: Free T4 Free Thyroxine Reflex 1.47 ng/dL (0.78-2.19)
[2023-06-25] MEDS: HEPARIN SODIUM 5,000 UNITS/ML VIAL 4000 UNITS IV PUSH (05:52)
[2023-06-25] MEDS: HEPARIN SOD/D5W 100 UNITS/ML 25,000 UNITS/250 ML BAG 10 UNITS IV CONT (05:55)
[2023-06-25 06:02] LABS: Total Triiodothyronine (T3) 1.15 NG/ML (0.97-1.69)
[2023-06-25 06:08] LABS: Influenza A QL RT-PCR Negative (Negative); Influenza B QL RT-PCR Negative (Negative); RSV RNA, RT-PCR Negative (Negative); SARS-CoV-2 RNA PCR Negative (Negative)
--- NOTE | 2023-06-25 07:02 | PM.IMHP ---
H&P: HPI History of Present Illness Date/Time: 06/25/23 07:02 Chief Complaint: Pt presented to the emergency complaint ongoing chest pain for the past week Patient has PMHx: HTN, dyslipidemia, history of CVA Narrative: Patient gives a history: Mr. Rey, is a 68-year-old male who presented to the emergency department accompanied by his significant other for chest pain.? He stated he has been having chest pain on and off on the left side of his chest for the past 1 week to 10 days. Patient endorses a few nights ago he woke up in pain to his left substernal chest, he described pain that was nonradiating, tight and constant he reports also having an episode of diaphoreses, he denied any nausea vomiting fever or chills with this episode but he states he was unsure of his symptoms and was experiencing great anxiety so he called 911, when EMS arrived he was given 2 nitroglycerin tablets as well as an aspirin, patient states this helped with his pain but did not relieve it in its entirety. Patient denies a history of cardiac disease, he does report a history of a stress test in the past, but denies having a washer carcass at this time. He denies any recent travel, or medication change, he denies unilateral lower extremity swelling, new cough, fever, recent injuries, recent illness, numbness, weakness, abdominal pain, nausea, vomiting, diarrhea, melena, hematochezia, urinary discomfort, palpitations, sore throat, nasal congestion.? Patient denies any new or change medications and is taking all his medications as prescribed. Patient admits he still uses tobacco, and has 1-2 alcoholic beverages a day, we also admits recently he has noticed a slight tremor to bilateral hands. ED workup reveals: CBC is within normal limits, lipase is 116 CMP reveals glucose of 117 sodium is 133 all other is within normal limits D-dimer is 0.4 a his magnesium was 2.4, and his initial troponin were all negative < 0.012, viral PCR is negative. Review of Systems Review of Systems: A 10 system review of systems was completed on the patient and is negative except for what is stated in the HPI. Nursing and ancillary documentation was reviewed. [facility] Past Medical History Medical History Chronic pain of right lower extremity CVA (cerebral vascular accident) Multiple punctate infarcts on MRI Hypertension IGT (impaired glucose tolerance) Mixed hyperlipidemia Thyroid disease Surgical History Surgical History H/O neck surgery History of epidermal inclusion cyst excision Excisional biopsy of mid upper back sebacous cyst on 03/23/22 History of tonsillectomy Family History Family History Mother Hypertension, Onset Age: 84 Acute myocardial infarction, Onset Age: 84 Family history of Alzheimer's disease, Onset Age: 84 Patient's mother is , Onset Age: 84 Father Acute myocardial infarction Cerebrovascular accident Hypertension Social History Social History Smoking packs per day: 0.03 Smoking cigarettes per day: 0.6 Years smoked: 50 Smoking pack-years: 1.50 Smoking status: Current every day smoker Tobacco type: cigarettes Second hand tobacco smoke exposure: Yes Alcohol intake: current Drinks per week: 14 Substance use: never Substance use type: does not use Do You Feel Safe in your Home?: Yes Lack of Transportation: No Lack of Food: Never True Current Housing: I Have Housing Concerned About Future Housing: No Difficulty Paying Gas/Electric Bills: No Difficulty Paying for Meds: No Currently Unemployed: No Education: High School Diploma/GED Difficulty w/ Childcare or Family Care: No Living arrangements: with family Occupation/Education: retired Gender identity (if verbalized by the
[2023-06-25 07:12] LABS: Troponin I < 0.012 ng/mL (0.000-0.034)
[2023-06-25 10:22] LABS: Troponin I < 0.012 ng/mL (0.000-0.034)
[2023-06-25 10:39] LABS: Hemoglobin A1C 5.6 % (<5.7)
--- NOTE | 2023-06-25 11:21 | ADMGEN ---
This patient, Nemesio Law, was admitted to IMU Room 212-01. Patient/family oriented to hospital policies and general routines including ID bracelet, bed and alarms, visiting hours, pain management, procedures, bathroom and other care routines, personal items, smoking policy, room service/diet, and visiting hours. Information on how to activate the Rapid Response Team has been discussed. Patient/Family are encouraged to report perceived risks to care and to ask questions if they do not understand what they are told or what they should do.
[2023-06-25 12:07] LABS: Partial Thromboplastin Time 75.8 SECONDS (22.3-36.8)
[2023-06-25 12:31] LABS: Glucose Point of Care 95 mg/dl (65-105)
--- NOTE | 2023-06-25 13:09 | PM.CNCAR ---
Assessment and Plan Assessment and plan (1) Chest pain: Qualifiers: Chest pain type: unspecified Qualified Code(s): R07.9 - Chest pain, unspecified Code(s): R07.9 - Chest pain, unspecified Status: Acute Plan This is a 68-year-old man who is extremely concerned about coronary artery disease and the need that he might have to have a heart operation. He has no personal history of coronary disease but obvious risk factors including hypertension dyslipidemia and cigarette smoking. Fortunately there is no evidence of acute coronary syndrome despite ongoing symptoms. I believe she should have a Lexiscan nuclear stress test for ischemic evaluation. Unfortunately it is too late at this time to get that on the schedule for today. I therefore would anticipate keeping him in the hospital in doing this on Wednesday morning. He is too anxious for about having heart disease to go home and have this done as an outpatient. He did have CTA of his chest to short time ago that shows no evidence of a DVT. Since PE and acute coronary syndrome has been ruled out it would be my opinion that IV heparin can be stopped. He should be fed a normal diet and he is asking for anxiolytic medication. Garrison Hoang MD [facility] History of Present Illness History of Present Illness Consult date/time: 06/25/23 13:09 Reason For Visit: Chest Pain Unstable Angina Narrative: This is a 68-year-old man I am seeing at the request of the hospitalist today because of chest pain. The patient is unknown to me prior to this consultation and was seen in IMU. He is a very pleasant and very anxious 68-year-old man who came to the hospital through the emergency room yesterday with a variety of symptoms. The patient states that he has been having episodes of tightness and fullness in the left precordium that have been going off and on for the last week to 10 days. I he gave this story to the emergency room staff that these are exertional symptoms but I do not really obtain a history like that. The symptoms seem to be unpredictable. Despite the fact that he has this ongoing central chest tightness his electrocardiogram looked normal and his troponins have been negative x3 sets. He says he is extremely anxious and worried that he is going to have to have heart surgery because he does not think that he will survive heart surgery. I reassured the patient that the at this time there are no plans for a cardiac operation. He does not have any overt history of heart disease. He does carry the diagnosis of hypertension and dyslipidemia and he has ongoing cigarette smoking as his print of the principal risk factors. He did suffer a stroke about 10 years ago he states which left him with some right lower extremity weakness. He states that is chronic and but he believes that would prevent him from performing an adequate exercise treadmill exam. He states he did have a nuclear stress test for some reason many years ago but can not remember anything about the reason for that. He recalls the test being normal. 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 Review of Systems Constitutional: Constitutional: Reports no additional constitutional complaints Eyes: Eyes: Reports no additional eye complaints ENT: Reports system reviewed and no additional complaints, except as documented Cardiovascular: Cardiovascular: Reports as per HPI Respiratory: Respiratory: Reports dyspnea on exertion Gastrointestinal: Gastrointestinal: Reports no additional gastrointestinal complaints Musculoskeletal: Musculoskeletal: Reports no additional musculoskeletal complaints Integumentary/Breasts: Skin/Breast: Reports system reviewed and no additional complaints, except as docu Neurologic: Reports as per HPI Psychiatric: Psychiatric: Reports anxiety Endocrine: Endocrine: Reports no additional endocrine complaints Hematologic/Lymphatic: Hematologic
[2023-06-25] MEDS: LORazepam (*CRX) 0.5 MG TABLET PO (16:10)
[2023-06-25 19:55] LABS: Glucose Point of Care 93 mg/dl (65-105)
[2023-06-26] VITALS (19 sets, daily range): BP systolic 113–131; BP diastolic 59–89; PULSE 6–83; RESP 18–20; TEMP 36.2–36.9; O2SAT 98–100
[2023-06-26] MEDS: ALPRAZolam (*CRX) 0.125 MG TABLET PO (03:18)
[2023-06-26] MEDS: LORazepam (*CRX) 0.5 MG TABLET PO (04:47)
[2023-06-26 05:01] LABS: Basophils Percent Auto 0.5 % (0.2-1.2); Eosinophils Absolute Auto 0.2 K/mm3 (0-0.3); Eosinophils Percent Auto 3.1 % (0-4.4); Hematocrit 40.2 % (42.0-52.0); Immature Granulocyte Absolute 0.04 K/mm3 (0.00-0.031); Immature Granulocyte Percent A 0.5 % (0-0.5); Lymphocytes Absolute Auto 1.34 K/mm3 (0.9-3.2); Lymphocytes Percent Auto 17.5 % (18.3-44.2); Mean Corpuscular HGB Conc 34.8 g/dl (32-36); Mean Corpuscular Hemoglobin 32.1 pg (26-34); Mean Corpuscular Volume 92.2 fl (80-100); Mean Platelet Volume 9.3 fl (7.4-10.4); Monocytes Absolute Auto 0.7 K/mm3 (0.1-0.6); Monocytes Percent Auto 9.1 % (2.6-8.5); Neutrophils Absolute Auto 5.3 K/mm3 (1.3-6.7); Neutrophils Percent Auto 69.3 % (45.5-73.1); Platelet Count Result 213 k/mm3 (150-375); Red Blood Count 4.36 M/mm3 (4.6-6.20); Red Cell Distribution Width 12.7 % (11.5-14.5); White Blood Count 7.7 K/mm3 (4.5-10.0)
[2023-06-26 05:12] LABS: Alanine Aminotransferase 19 U/L (6-50); Albumin Level 3.9 g/dL (3.5-5.1); Alkaline Phosphatase 58 U/L (38-126); Anion Gap 6 mmol/L (8-16); Aspartate Amino Transferase 30 U/L (17-59); Bilirubin,Total 0.7 mg/dL (0.2-1.3); Blood Urea Nitrogen 12 mg/dL (9-20); Calcium 9.1 mg/dL (8.4-10.2); Carbon Dioxide 25 mmol/L (22-30); Chloride 100 mmol/L (98-107); Cholesterol 125 mg/dL (0-200); Estimated CRCL calculation 74 ml/min; Estimated Glomerular Filt Rate > 60; Glucose 105 mg/dL (65-110); HDL Direct 39 mg/dL; Potassium 3.9 mmol/L (3.4-5.0); Sodium 131 mmol/L (137-145); Triglycerides 75 mg/dL (<150)
[2023-06-26 05:23] LABS: LDL Cholesterol Direct 74 mg/dL
[2023-06-26] MEDS: LEVOTHYROXINE SODIUM 88 MCG TABLET PO (06:27)
[2023-06-26 07:05] LABS: Free T4 Free Thyroxine Reflex 1.39 ng/dL (0.78-2.19)
[2023-06-26 08:17] LABS: Total Triiodothyronine (T3) 1.09 NG/ML (0.97-1.69)
[2023-06-26] MEDS: HEPARIN SODIUM 5,000 UNITS/ML VIAL 5000 UNITS SUB-Q ×2 (09:40→20:02)
[2023-06-26] MEDS: THIAMINE HCL 200 MG/2 ML VIAL 100 MG IV PUSH (09:40)
[2023-06-26] MEDS: FOLIC ACID 1 MG TABLET PO (09:41)
[2023-06-26] MEDS: ASPIRIN 81 MG ENTERIC TABLET PO (09:41)
[2023-06-26] MEDS: ROSUVASTATIN 10 MG TABLET 20 MG PO (09:41)
[2023-06-26] MEDS: amLODIPine BESYLATE 5 MG TABLET PO (09:41)
[2023-06-26 10:15] LABS: Glucose Point of Care 136 mg/dl (65-105)
--- NOTE | 2023-06-26 10:46 | PM.IMPN ---
Progress Note: A&P Assessment and Plan (1) Chest pain: Qualifiers: Chest pain type: unspecified Qualified Code(s): R07.9 - Chest pain, unspecified Code(s): R07.9 - Chest pain, unspecified Status: Acute Assessment and Plan: -continue telemetry monitoring -cardiology consulted appreciate recommendation and plan -continue ASA 81 daily -echo, reveals EF 65-70%, grade 1 diastolic dysfunction, mild aortic valve sclerosis, mild mitral valve regurgitation mild tricuspid regurgitation, no pulmonary HTN -plan for stress test Wednesday per Cardiology -oxygen titration therapy to maintain SpO2 > 93% -EKG p.r.n. if patient complains of chest pain, alert MD (2) Chronic pain of right lower extremity: Code(s): M79.604 - Pain in right leg; G89.29 - Other chronic pain Status: Acute Assessment and Plan: -venous Doppler LE BI -impression patent bilateral lower extremity veins no evidence of deep venous thrombosis (3) Tobacco use: Code(s): Z72.0 - Tobacco use Status: Acute Assessment and Plan: -consider smoking cessation (4) CVA (cerebral vascular accident): Qualifiers: CVA mechanism: other Qualified Code(s): I63.89 - Other cerebral infarction Code(s): I63.9 - Cerebral infarction, unspecified Status: Resolved Assessment and Plan: History of CVA/05/03/2020 -CT brain revealed 1.? No acute intracranial findings. 2.? Chronic age related findings. 3.? Small old infarctions. -continue home medication rosuvastatin 20 mg p.o. daily (5) Hypertension: Qualifiers: Hypertension type: primary hypertension Qualified Code(s): I10 - Essential (primary) hypertension Code(s): I10 - Essential (primary) hypertension Status: Acute Assessment and Plan: Chronic ongoing compliant with home medication -continue home medication amlodipine 5 mg daily (6) Adult hypothyroidism: Code(s): E03.9 - Hypothyroidism, unspecified Status: Chronic Assessment and Plan: Chronic, managed by PCP, TSH 4.77 -continue home medication levothyroxine 88 mcg p.o. daily (7) Alcohol use: Code(s): Z78.9 - Other specified health status Status: Acute Assessment and Plan: -patient reports he has never attempted to not use alcohol, he reports 1-2 alcoholic beverages a day, he has mild anxiety not related to alcohol use -initiate CIWA scale -initiate thiamine HCI IVP for 5 days, then start PO -initiate folic acid 1 mg p.o. daily 06/26/2023 -continue plan (8) Anxiety about health: Code(s): R45.89 - Other symptoms and signs involving emotional state Status: Acute Assessment and Plan: Patient is very concerned about his heart health and if he will need intervention -increase lorazepam p.o. 1mg q.4 hours for anxiety Plan Continue home medications: VTE Prophylaxis: Heparin subQ, start 06/26/2023 DIET: Heart healthy Anticipated hospital stay: > 3 days Code Status: Full Subjective Date/time seen: 06/26/23 10:46 Interval history: Chief Complaint: Pt presented to the emergency complaint ongoing chest pain for the past week Patient has PMHx:? HTN, dyslipidemia, history of CVA Narrative: Patient gives a history: Mr. Rey, is a 68-year-old male who presented to the emergency department accompanied by his significant other for chest pain.? He stated he has been having chest pain on and off on the left side of his chest for the past 1 week to 10 days. Patient endorses a few nights ago he woke up in pain to his left substernal chest, he described pain that was nonradiating, tight and constant he reports also having an episode of diaphoreses, he denied any nausea vomiting fever or chills with this episode but he states he was unsure of his symptoms and was experiencing great anxiety so he called 911, when EMS arrived? he was given 2 nitroglycerin tablets as well as an aspirin, patient states? this he
[2023-06-26 11:48] LABS: Glucose Point of Care 90 mg/dl (65-105)
--- NOTE | 2023-06-26 12:41 | PM.PNCARD ---
Progress Note: A&P Assessment and Plan (1) Chest pain: Qualifiers: Chest pain type: unspecified Qualified Code(s): R07.9 - Chest pain, unspecified Code(s): R07.9 - Chest pain, unspecified Status: Acute Plan 68-year-old man with intermittent symptoms significant concern regarding ischemic heart disease. Plans for Lexiscan nuclear stress testing Wednesday. Placed orders for the exam Garrison Hoang MD [facility] Subjective Date/time seen: Date of service: 06/26/23 12:41 Interval history: Follow-up visit in this 68-year-old man with: Variety of symptoms including some chest pain but also a lot of anxiety/or emotional overlay. Patient is highly concerned about possibility of coronary heart disease. Plans for Lexiscan stress test on Wednesday were reviewed in detail. Exam Const: General: comfortable and no acute distress HENMT: Mouth: Yes moist mucous membranes Eyes: Sclera: sclerae normal Neck: Neck: supple and no JVD Resp: Effort & Inspection: normal respiratory effort Auscultation: clear to auscultation bilaterally Cardio: Rate: regular rate Rhythm: regular rhythm GI: GI Palp: Yes Soft to palpation Auscultation: normal bowel sounds Skin: General skin exam: normal color Neuro: Other: Alert and oriented Extrem: General: normal to inspection Objective Data Vital Signs Vital Signs: Vital Signs - 24 hr 06/25/23 14:00 06/25/23 15:38 06/25/23 16:00 Temperature 36.9 C Pulse Rate 68 63 71 Respiratory Rate 18 Blood Pressure 137/67 Pulse Oximetry 99 Oxygen Delivery 06/25/23 16:00 06/25/23 18:00 06/25/23 20:00 Temperature 36.2 C L Pulse Rate 72 56 L Respiratory Rate 16 Blood Pressure 142/71 H Pulse Oximetry 98 Oxygen Delivery Room Air 06/25/23 23:39 06/25/23 20:00 06/25/23 22:00 Temperature 36.6 C Pulse Rate 58 L 72 66 Respiratory Rate 18 Blood Pressure 126/60 Pulse Oximetry 100 Oxygen Delivery 06/26/23 00:00 06/26/23 02:00 06/26/23 04:00 Temperature Pulse Rate 45 L 46 L 63 Respiratory Rate Blood Pressure Pulse Oximetry Oxygen Delivery 06/26/23 04:00 06/26/23 08:07 06/26/23 08:05 Temperature 36.6 C 36.2 C L Pulse Rate 60 82 Respiratory Rate 18 20 Blood Pressure 126/60 115/89 Pulse Oximetry 100 100 Oxygen Delivery Room Air 06/26/23 11:25 06/26/23 11:25 06/26/23 11:27 Temperature 36.9 C 36.9 C Pulse Rate 6 L 60 72 Respiratory Rate 20 20 Blood Pressure 120/71 120/71 120/71 Pulse Oximetry 100 100 98 Oxygen Delivery 06/26/23 11:28 06/26/23 08:00 06/26/23 10:00 Temperature Pulse Rate 83 75 82 Respiratory Rate Blood Pressure 125/67 Pulse Oximetry 99 Oxygen Delivery 06/26/23 11:42 Temperature Pulse Rate Respiratory Rate Blood Pressure Pulse Oximetry 98 Oxygen Delivery Room Air Intake/Output Intake/Output: Intake & Output 06/23/23 06/24/23 06/25/23 06/26/23 23:59 23:59 23:59 23:59 Intake Total 1460 500 Output Total 600 Balance 860 500 Meds/Results Medications: Active Medications Generic Name Dose Route Start Last Admin Trade Name Freq PRN Reason Stop Dose Admin Hydrocodone Bitart/Acetaminophen 1 tab 06/25/23 09:07 Hydrocodone/Acetaminophen (*Crx) 5-325 Mg Tablet PO Q4H PRN Moderate Pain (4-6) Amlodipine Besylate 5 mg 06/26/23 09:00 06/26/23 09:41 Amlodipine Besylate 5 Mg Tablet PO 5 mg DAILY MARY LOU Administration Aspirin 81 mg 06/26/23 09:00 06/26/23 09:41 Aspirin 81 Mg Enteric Tablet PO 81 mg DAILY MARY LOU Administration Bisacodyl 5 mg 06/25/23 09:07 Bisacodyl 5 Mg Tablet Ec PO DAILY PRN Constipation Folic Acid 1 mg 06/26/23 09:00 06/26/23 09:41 Folic Acid 1 Mg Tablet PO 1 mg DAILY MARY LOU Administration Heparin Sodium (Porcine) 5,000 units 06/26/23 09:00 06/26/23 09:40 Heparin Sodium 5,000 Units/Ml Vial SUB-Q 5,000 units Q12HR MARY LOU Administrat
[2023-06-26] MEDS: LORazepam (*CRX) 1 MG TABLET PO ×2 (12:45→20:02)
[2023-06-26 16:42] LABS: Glucose Point of Care 81 mg/dl (65-105)
[2023-06-26 19:51] LABS: Glucose Point of Care 137 mg/dl (65-105)
[2023-06-27] VITALS (20 sets, daily range): BP systolic 101–134; BP diastolic 58–74; PULSE 47–73; RESP 18–20; TEMP 36.3–36.4; O2SAT 96–98
[2023-06-27 05:01] LABS: Basophils Percent Auto 0.6 % (0.2-1.2); Eosinophils Absolute Auto 0.3 K/mm3 (0-0.3); Eosinophils Percent Auto 4.6 % (0-4.4); Hematocrit 39.2 % (42.0-52.0); Hemoglobin 13.6 g/dL (14.0-18.0); Immature Granulocyte Absolute 0.04 K/mm3 (0.00-0.031); Immature Granulocyte Percent A 0.6 % (0-0.5); Lymphocytes Absolute Auto 1.67 K/mm3 (0.9-3.2); Lymphocytes Percent Auto 23.3 % (18.3-44.2); Mean Corpuscular HGB Conc 34.7 g/dl (32-36); Mean Corpuscular Hemoglobin 32.2 pg (26-34); Mean Corpuscular Volume 92.7 fl (80-100); Mean Platelet Volume 9.3 fl (7.4-10.4); Monocytes Absolute Auto 0.7 K/mm3 (0.1-0.6); Monocytes Percent Auto 9.5 % (2.6-8.5); Neutrophils Absolute Auto 4.4 K/mm3 (1.3-6.7); Neutrophils Percent Auto 61.4 % (45.5-73.1); Platelet Count Result 200 k/mm3 (150-375); Red Blood Count 4.23 M/mm3 (4.6-6.20); Red Cell Distribution Width 12.8 % (11.5-14.5); White Blood Count 7.2 K/mm3 (4.5-10.0)
[2023-06-27 05:12] LABS: Alanine Aminotransferase 18 U/L (6-50); Albumin Level 3.8 g/dL (3.5-5.1); Alkaline Phosphatase 60 U/L (38-126); Anion Gap 4 mmol/L (8-16); Aspartate Amino Transferase 44 U/L (17-59); Bilirubin,Total 0.5 mg/dL (0.2-1.3); Blood Urea Nitrogen 11 mg/dL (9-20); Carbon Dioxide 25 mmol/L (22-30); Chloride 101 mmol/L (98-107); Estimated CRCL calculation 82 ml/min; Estimated Glomerular Filt Rate > 60; Glucose 111 mg/dL (65-110); Potassium 3.8 mmol/L (3.4-5.0); Sodium 130 mmol/L (137-145)
[2023-06-27] MEDS: LEVOTHYROXINE SODIUM 88 MCG TABLET PO (05:36)
[2023-06-27 07:44] LABS: Glucose Point of Care 114 mg/dl (65-105)
[2023-06-27] MEDS: FOLIC ACID 1 MG TABLET PO (10:02)
[2023-06-27] MEDS: ASPIRIN 81 MG ENTERIC TABLET PO (10:02)
[2023-06-27] MEDS: amLODIPine BESYLATE 5 MG TABLET PO (10:02)
[2023-06-27] MEDS: ROSUVASTATIN 10 MG TABLET 20 MG PO (10:02)
[2023-06-27] MEDS: LORazepam (*CRX) 1 MG TABLET PO ×2 (10:02→20:16)
[2023-06-27] MEDS: THIAMINE HCL 200 MG/2 ML VIAL 100 MG IV PUSH (10:03)
[2023-06-27] MEDS: HEPARIN SODIUM 5,000 UNITS/ML VIAL 5000 UNITS SUB-Q ×2 (10:03→20:16)
[2023-06-27 11:39] LABS: Glucose Point of Care 82 mg/dl (65-105)
--- NOTE | 2023-06-27 12:27 | PM.IMPN ---
Progress Note: A&P Assessment and Plan (1) Chest pain: Qualifiers: Chest pain type: unspecified Qualified Code(s): R07.9 - Chest pain, unspecified Code(s): R07.9 - Chest pain, unspecified Status: Acute Assessment and Plan: -continue telemetry monitoring -cardiology consulted appreciate recommendation and plan -continue ASA 81 daily -echo, reveals EF 65-70%, grade 1 diastolic dysfunction, mild aortic valve sclerosis, mild mitral valve regurgitation mild tricuspid regurgitation, no pulmonary HTN -plan for stress test Wednesday per Cardiology -oxygen titration therapy to maintain SpO2 > 93% -EKG p.r.n. if patient complains of chest pain, alert MD 06/27/2023: continue plan above (2) Chronic pain of right lower extremity: Code(s): M79.604 - Pain in right leg; G89.29 - Other chronic pain Status: Acute Assessment and Plan: -venous Doppler LE BI -impression patent bilateral lower extremity veins no evidence of deep venous thrombosis (3) Tobacco use: Code(s): Z72.0 - Tobacco use Status: Acute Assessment and Plan: -consider smoking cessation (4) CVA (cerebral vascular accident): Qualifiers: CVA mechanism: other Qualified Code(s): I63.89 - Other cerebral infarction Code(s): I63.9 - Cerebral infarction, unspecified Status: Resolved Assessment and Plan: History of CVA/05/03/2020 -CT brain revealed 1.? No acute intracranial findings. 2.? Chronic age related findings. 3.? Small old infarctions. -continue home medication rosuvastatin 20 mg p.o. daily (5) Hypertension: Qualifiers: Hypertension type: primary hypertension Qualified Code(s): I10 - Essential (primary) hypertension Code(s): I10 - Essential (primary) hypertension Status: Acute Assessment and Plan: Chronic ongoing compliant with home medication -continue home medication amlodipine 5 mg daily (6) Adult hypothyroidism: Code(s): E03.9 - Hypothyroidism, unspecified Status: Chronic Assessment and Plan: Chronic, managed by PCP, TSH 7.29 -continue home medication levothyroxine 88 mcg p.o. daily -will have pcp manage medication (7) Alcohol use: Code(s): Z78.9 - Other specified health status Status: Acute Assessment and Plan: -patient reports he has never attempted to not use alcohol, he reports 1-2 alcoholic beverages a day, he has mild anxiety not related to alcohol use -initiate CIWA scale -initiate thiamine HCI IVP for 5 days, then start PO -initiate folic acid 1 mg p.o. daily 06/26/2023 -continue plan above 06/27/2023 -continue with plan above (8) Anxiety about health: Code(s): R45.89 - Other symptoms and signs involving emotional state Status: Acute Assessment and Plan: Patient is very concerned about his heart health and if he will need intervention -continue lorazepam p.o. 1mg q.4 hours for anxiety (9) Right lower lobe pulmonary nodule: Code(s): R91.1 - Solitary pulmonary nodule Status: Acute Assessment and Plan: As evidence by CTA chest PE protocol iMPRESSION: 1. No pulmonary embolism or other acute cardiopulmonary disease. 2. 7 mm right lower lobe nodule. Would recommend 6-12 month follow-up low-dose noncontrast chest CT. -follow-up outpatient Plan Continue home medications: VTE Prophylaxis: Heparin subQ, start 06/26/2023 DIET: Heart healthy Anticipated hospital stay: > 3 days Code Status: Full Subjective Date/time seen: 06/27/23 12:27 Interval history: Chief Complaint: Pt presented to the emergency complaint ongoing chest pain for the past week Patient has PMHx:? HTN, dyslipidemia, history of CVA Narrative: Patient gives a history: Mr. Rey, is a 68-year-old male who presented to the emergency department accompanied by his significant other for chest pain.? He stated he has been having chest pain on and off on the left side of h
[2023-06-27 16:50] LABS: Glucose Point of Care 81 mg/dl (65-105)
[2023-06-27 20:19] LABS: Glucose Point of Care 102 mg/dl (65-105)
[2023-06-28] VITALS (13 sets, daily range): BP systolic 117–139; BP diastolic 69–82; PULSE 45–74; RESP 14–18; TEMP 36.4–36.9; O2SAT 97–100
--- NOTE | 2023-06-28 | EST_ITS ---
Patient Info Name: Nemesio Law Age: 68 years : 1955 Gender: Male Ht: 72 in Wt: 192 lbs BSA: 2.11 m2 Exam Date: 06/28/2023 11:12 AM Exam Location: [facility] Patient Status: Inpatient Admit Date: 06/25/2023 Staff Ordering Physician: Garrison Hoang MD Attending Provider: Mariza Suazo DO Exercise Technologist: Aurora Clarke RDCS Exercise Physician: Ruben Nicholas MD Exam Type: CA stress bebeto w NM Study Info Indications R07.9 - Chest pain, unspecified A regadenoson stress test was performed. Summary 1. No abnormal ST/T wave changes with Lexiscan administration. 2. No arrhythmias were observed during the examination. 3. No chest discomfort with stress test. 4. Please correlate with nuclear medicine images, reported separately. Protocol: Lexiscan Stress ECG Details Stage: REST Duration (min): 0 min : 51 sec HR (bpm): 64 SBP (mmHg): 142 DBP (mmHg): 78 Stage: REST Duration (min): 18 min : 37 sec HR (bpm): 64 SBP (mmHg): 142 DBP (mmHg): 78 Stage: STAGE 1 Duration (min): 0 min : 59 sec HR (bpm): 81 SBP (mmHg): 170 DBP (mmHg): 94 Stage: RECOVERY Duration (min): 1 min : 0 sec HR (bpm): 91 SBP (mmHg): 143 DBP (mmHg): 89 Stage: RECOVERY Duration (min): 2 min : 0 sec HR (bpm): 89 SBP (mmHg): 143 DBP (mmHg): 89 Stage: RECOVERY Duration (min): 3 min : 0 sec HR (bpm): 81 SBP (mmHg): 158 DBP (mmHg): 87 Stage: RECOVERY Duration (min): 3 min : 3 sec HR (bpm): 81 SBP (mmHg): 158 DBP (mmHg): 87 Rest HR: 64 bpm Peak HR: 94 bpm Rest Sys BP: 142 mmHg Peak Sys BP: 170 mmHg Max Pred HR: 150 bpm % Max Pred HR: 63 % Target HR: 128 bpm Max RPP: 15,980 bpm*mmHg Total Time: 1 min : 0 sec Rest Resendez BP: 78 mmHg Peak Resendez BP: 94 mmHg Total Dose: 0.4 mg Resting ECG Normal sinus rhythm - normal ECG. Stress ECG No abnormal ST/T wave changes with Lexiscan administration. Arrhythmias No arrhythmias were observed during the examination. Report Signatures
[2023-06-28 04:42] LABS: Basophils Percent Auto 0.5 % (0.2-1.2); Eosinophils Absolute Auto 0.4 K/mm3 (0-0.3); Eosinophils Percent Auto 5.7 % (0-4.4); Hematocrit 38.7 % (42.0-52.0); Hemoglobin 13.3 g/dL (14.0-18.0); Immature Granulocyte Absolute 0.04 K/mm3 (0.00-0.031); Immature Granulocyte Percent A 0.5 % (0-0.5); Lymphocytes Absolute Auto 1.87 K/mm3 (0.9-3.2); Lymphocytes Percent Auto 24.7 % (18.3-44.2); Mean Corpuscular HGB Conc 34.4 g/dl (32-36); Mean Corpuscular Hemoglobin 31.9 pg (26-34); Mean Corpuscular Volume 92.8 fl (80-100); Mean Platelet Volume 9.4 fl (7.4-10.4); Monocytes Absolute Auto 0.7 K/mm3 (0.1-0.6); Monocytes Percent Auto 8.7 % (2.6-8.5); Neutrophils Absolute Auto 4.5 K/mm3 (1.3-6.7); Neutrophils Percent Auto 59.9 % (45.5-73.1); Platelet Count Result 198 k/mm3 (150-375); Red Blood Count 4.17 M/mm3 (4.6-6.20); Red Cell Distribution Width 12.8 % (11.5-14.5); White Blood Count 7.6 K/mm3 (4.5-10.0)
[2023-06-28 05:00] LABS: Alanine Aminotransferase 19 U/L (6-50); Albumin Level 3.8 g/dL (3.5-5.1); Alkaline Phosphatase 60 U/L (38-126); Anion Gap 6 mmol/L (8-16); Aspartate Amino Transferase 43 U/L (17-59); Bilirubin,Total 0.5 mg/dL (0.2-1.3); Blood Urea Nitrogen 8 mg/dL (9-20); Calcium 8.9 mg/dL (8.4-10.2); Carbon Dioxide 26 mmol/L (22-30); Chloride 97 mmol/L (98-107); Estimated CRCL calculation 82 ml/min; Estimated Glomerular Filt Rate > 60; Glucose 105 mg/dL (65-110); Potassium 3.8 mmol/L (3.4-5.0); Sodium 129 mmol/L (137-145)
[2023-06-28 07:50] LABS: Glucose Point of Care 109 mg/dl (65-105)
[2023-06-28] MEDS: amLODIPine BESYLATE 5 MG TABLET PO (08:52)
[2023-06-28] MEDS: FOLIC ACID 1 MG TABLET PO (08:52)
[2023-06-28] MEDS: THIAMINE HCL 200 MG/2 ML VIAL 100 MG IV PUSH (08:52)
[2023-06-28] MEDS: ROSUVASTATIN 10 MG TABLET 20 MG PO (08:52)
[2023-06-28] MEDS: ASPIRIN 81 MG ENTERIC TABLET PO (08:52)
[2023-06-28] MEDS: HEPARIN SODIUM 5,000 UNITS/ML VIAL 5000 UNITS SUB-Q (08:53)
--- NOTE | 2023-06-28 12:25 | PM.IMPN ---
Subjective Date/time seen: 06/28/23 12:25 Interval history: Chief Complaint: Pt presented to the emergency complaint ongoing chest pain for the past week Patient has PMHx:? HTN, dyslipidemia, history of CVA Narrative: Patient gives a history: Mr. Rey, is a 68-year-old male who presented to the emergency department accompanied by his significant other for chest pain.? He stated he has been having chest pain on and off on the left side of his chest for the past 1 week to 10 days. Patient endorses a few nights ago he woke up in pain to his left substernal chest, he described pain that was nonradiating, tight and constant he reports also having an episode of diaphoreses, he denied any nausea vomiting fever or chills with this episode but he states he was unsure of his symptoms and was experiencing great anxiety so he called 911, when EMS arrived? he was given 2 nitroglycerin tablets as well as an aspirin, patient states? this helped with his pain but did not relieve it in its entirety.? Patient denies a history of cardiac disease, he does report a history of a stress test in the past, but denies having a crystal lapper at this time.? He denies any recent travel, or medication change, he denies unilateral lower extremity swelling, new cough, fever, recent injuries, recent illness, numbness, weakness, abdominal pain, nausea, vomiting, diarrhea, melena, hematochezia, urinary discomfort, palpitations, sore throat, nasal congestion.? Patient denies any new or change medications and is taking all his medications as prescribed.? Patient admits he still uses tobacco, and has 1-2 alcoholic beverages a day, we also admits recently he has noticed a slight tremor to bilateral hands. ED workup reveals:??CBC is within normal limits, lipase is 116 CMP reveals glucose of 117 sodium is 133 all other is within normal limits D-dimer is 0.4 a his magnesium was 2.4, and his initial troponin were all negative < 0.012, viral PCR is negative. Interval Hx: 06/26/2023: pt was seen this a.m he is resting easily arouses. 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 He denies any chest pain, sob, fever, abdominal pain. 06/27/2023: Pt seen this am, he is sitting up in the bed, in no acute distress, denies any overnight events of chest pain, n/v, fever or chills. Pt admits to ongoing mild to moderate anxiety that is relieved with p.o. lorazepam p.r.n. 06/28/2023: Objective Data Vital Signs Vital Signs: Vital Signs - 24 hr 06/27/23 16:43 06/27/23 14:00 06/27/23 16:00 Temperature 97.6 F Pulse Rate 60 59 L 57 L Respiratory Rate 20 Blood Pressure 101/58 L Pulse Oximetry 97 Oxygen Delivery 06/27/23 18:00 06/27/23 16:00 06/27/23 20:00 Temperature Pulse Rate 55 L Respiratory Rate Blood Pressure Pulse Oximetry Oxygen Delivery Room Air Room Air 06/27/23 20:27 06/27/23 23:51 06/28/23 00:00 Temperature 97.6 F 97.6 F Pulse Rate 61 47 L Respiratory Rate 18 18 Blood Pressure 127/74 125/68 Pulse Oximetry 97 97 Oxygen Delivery Room Air 06/28/23 04:00 06/27/23 20:00 06/27/23 22:00 Temperature Pulse Rate 73 56 L Respiratory Rate Blood Pressure Pulse Oximetry Oxygen Delivery Room Air 06/28/23 00:00 06/28/23 02:00 06/28/23 04:00 Temperature Pulse Rate 61 57 L 58 L Respiratory Rate Blood Pressure Pulse Oximetry Oxygen Delivery 06/28/23 04:48 06/28/23 06:00 06/28/23 07:35 Temperature 97.6 F 98.0 F Pulse Rate 45 L 48 L 71 Respiratory Rate 18 18 Blood Pressure 139/82 138/74 Pulse Oximetry 97 100 Oxygen Delivery 06/28/23 08:00 06/28/23 08:00 06/28/23 10:00 Temperature 98.4 F Pulse Rate 54 L 62 74 Respiratory Rate 18 Blood Pressure 124/77 Pulse Oximetry 98 Oxygen Delivery 06/28/23 09:30 06/28/23 10:08 Temperature Pulse Rate Respiratory Rate Blood Pressure 122/80 11
[2023-06-28 12:41] LABS: Glucose Point of Care 136 mg/dl (65-105)
--- NOTE | 2023-06-28 14:08 | PM.PNCARD ---
Progress Note: A&P Assessment and Plan (1) Chest pain: Qualifiers: Chest pain type: unspecified Qualified Code(s): R07.9 - Chest pain, unspecified Code(s): R07.9 - Chest pain, unspecified Status: Acute Assessment and Plan: Atypical, most likely secondary to anxiety. Lexiscan stress test negative for myocardial ischemia with preserved EF. No wall motion abnormalities noted on echocardiogram. His pain atypical, persistent fluctuating with regards to his anxiety levels. He has a normal ECG with normal ECG response during stress test. Patient may be discharged from cardiac perspective to follow up with his PCP as soon as possible. Disposition per hospitalist service. Cardiology will sign off. Thank very much. Please not hesitate to contact us with any questions or concerns. (2) Anxiety about health: Code(s): R45.89 - Other symptoms and signs involving emotional state Status: Acute Assessment and Plan: Defer management to primary service. Anxiolytics as appropriate. (3) Tobacco use: Code(s): Z72.0 - Tobacco use Status: Acute Assessment and Plan: Smoking cessation. (4) Hypertension: Qualifiers: Hypertension type: primary hypertension Qualified Code(s): I10 - Essential (primary) hypertension Code(s): I10 - Essential (primary) hypertension Status: Acute Assessment and Plan: BP reasonably controlled. Continue amlodipine 5 mg daily. (5) CVA (cerebral vascular accident): Qualifiers: CVA mechanism: other Qualified Code(s): I63.89 - Other cerebral infarction Code(s): I63.9 - Cerebral infarction, unspecified Status: Resolved Assessment and Plan: History of CVA. Continue rosuvastatin 20 mg bedtime and aspirin 81 mg daily for atherosclerotic risk reduction. Subjective Date/time seen: Date of service: 06/28/23 14:08 Interval history: Follow-up visit in this 68-year-old man with: Variety of symptoms including some chest pain but also a lot of anxiety/or emotional overlay. Patient continues to complain of severe anxiety some residual vague discomfort. Patient was evaluated during his Lexiscan stress test. Patient did well on his ECG response was normal without ischemic changes. Review of Systems Constitutional: Constitutional: Reports no additional constitutional complaints Eyes: Eyes: Reports no additional eye complaints ENT: Reports system reviewed and no additional complaints, except as documented Cardiovascular: Cardiovascular: Reports as per HPI and Reports dyspnea on exertion Respiratory: Respiratory: Reports dyspnea on exertion Gastrointestinal: Gastrointestinal: Reports no additional gastrointestinal complaints Musculoskeletal: Musculoskeletal: Reports no additional musculoskeletal complaints Integumentary/Breasts: Skin/Breast: Reports system reviewed and no additional complaints, except as docu Neurologic: Reports as per HPI Psychiatric: Psychiatric: Reports anxiety Endocrine: Endocrine: Reports no additional endocrine complaints Hematologic/Lymphatic: Hematologic/Lymphatic: Reports no additional hematologic/lymphatic complaints Allergic/Immunologic: Allergic/Immunologic: Reports no additional allergic/immunologic complaints Exam Const: General: comfortable and no acute distress Other: Pleasant comfortable man appearing about his stated age he is visibly anxious otherwise in no great distress HENMT: Mouth: Yes moist mucous membranes Eyes: Sclera: sclerae normal Neck: Neck: supple and no JVD Thyroid: thyroid normal Resp: Effort & Inspection: normal respiratory effort Auscultation: clear to auscultation bilaterally Cardio: Rate: regular rate Rhythm: regular rhythm Other: PMI is nondisplaced no murmur no gallop no rub GI: Auscultation: normal bowel sounds Skin: General skin exam: normal color Neuro: Other: Alert and oriented E
--- NOTE | 2023-06-28 14:20 | PM.DS ---
DS: Admitting Diagnosis Discharge Date 06/28/2023 Admitting Diagnosis -chest pain DS: Discharge Diagnosis Discharge Diagnosis (1) Right lower lobe pulmonary nodule: Code(s): R91.1 - Solitary pulmonary nodule Status: Acute (2) Anxiety about health: Code(s): R45.89 - Other symptoms and signs involving emotional state Status: Acute (3) Alcohol use: Code(s): Z78.9 - Other specified health status Status: Acute (4) Chest pain: Qualifiers: Chest pain type: unspecified Qualified Code(s): R07.9 - Chest pain, unspecified Code(s): R07.9 - Chest pain, unspecified Status: Acute (5) Hypertension: Qualifiers: Hypertension type: primary hypertension Qualified Code(s): I10 - Essential (primary) hypertension Code(s): I10 - Essential (primary) hypertension Status: Acute Plan Atypical chest pain most likely secondary to anxiety, Lexiscan stress test negative for myocardial ischemia with a preserved EF Patient will follow-up with cardiology outpatient DS: Summary Hospital Course Reason for hospitalization: Mr. Rey, is a 68-year-old male who presented to the emergency department accompanied by his significant other for chest pain.? He stated he has been having chest pain on and off on the left side of his chest for the past 1 week to 10 days. Hospital Course: Chief Complaint: Pt presented to the emergency complaint ongoing chest pain for the past week Patient has PMHx:? HTN, dyslipidemia, history of CVA Narrative: Patient gives a history: Mr. Rey, is a 68-year-old male who presented to the emergency department accompanied by his significant other for chest pain.? He stated he has been having chest pain on and off on the left side of his chest for the past 1 week to 10 days. Patient endorses a few nights ago he woke up in pain to his left substernal chest, he described pain that was nonradiating, tight and constant he reports also having an episode of diaphoreses, he denied any nausea vomiting fever or chills with this episode but he states he was unsure of his symptoms and was experiencing great anxiety so he called 911, when EMS arrived? he was given 2 nitroglycerin tablets as well as an aspirin, patient states? this helped with his pain but did not relieve it in its entirety.? 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 He denies any recent travel, or medication change, he denies unilateral lower extremity swelling, new cough, fever, recent injuries, recent illness, numbness, weakness, abdominal pain, nausea, vomiting, diarrhea, melena, hematochezia, urinary discomfort, palpitations, sore throat, nasal congestion.? Patient denies any new or change medications and is taking all his medications as prescribed.? Patient admits he still uses tobacco, and has 1-2 alcoholic beverages a day, we also admits recently he has noticed a slight tremor to bilateral hands. ED workup reveals:??CBC is within normal limits, lipase is 116 CMP reveals glucose of 117 sodium is 133 all other is within normal limits D-dimer is 0.4 a his magnesium was 2.4, and his initial troponin were all negative < 0.012, viral PCR is negative. Interval Hx:06/25 cardiology consult please see consultation note below: History of Present Illness History of Present Illness Consult date/time: 06/25/23? 13:09 Reason For Visit: Chest Pain Unstable Angina Narrative: This is a 68-year-old man I am seeing at the request of the hospitalist today because of chest pain.? The patient is unknown to me prior to this consultation and was seen in IMU.? He is a very pleasant and very anxious 68-year-old man who came to the hospital through the emergency room yesterday with a variety of symptoms.? The patient states that he has been having episodes of tightness and fullness in the left precordium that have been going off and
== END 2023-06-28 15:05 | disposition home or self-care (01) ==
LOC: ANHED 04:34 → ANHIMU 07:15
PROVIDERS: Nurse Practitioner; Admitting Provider Internal Medicine; Emergency Provider Student in an Organized Health Care Education/Training Program; PCP Nurse Practitioner; Visit Provider Internal Medicine
DX: R07.9 Chest pain, unspecified (principal); M79.604 Pain in right leg; G89.29 Other chronic pain; I10 Essential (primary) hypertension; E78.2 Mixed hyperlipidemia; E03.9 Hypothyroidism, unspecified; Z86.73 Personal history of transient ischemic attack (TIA), and cerebral infarction without residual deficits; Z79.82 Long term (current) use of aspirin; F17.210 Nicotine dependence, cigarettes, uncomplicated; F41.8 Other specified anxiety disorders; F10.90 Alcohol use, unspecified, uncomplicated; Z79.899 Other long term (current) drug therapy
CPT/HCPCS: 36415; 71046; 71275; 78452; 80053; 80061; 82607; 82948; 83036; 83690; 83735; 84439; 84443; 84480; 84484; 85025; 85380; 85610; 85730; 87637; 93005; 93017; 93306; 93970; 96372; 96374; 96375; 96376; 97161; 99285; A9270; A9502; G0378; J1644; J2785; J3411; Q9967

== ENCOUNTER 2023-07-21 07:42 | Outpatient (CLI) | payer MEDICARE, SELFPAY ==
--- NOTE | ~2023-07-21 | MR_ITS ---
MRI of the lumbar spine Clinical History: Back pain Technique: Axial T2-weighted images, and sagittal T1-weighted, T2-weighted, and T2 fat-sat images wer e acquired. Findings: There is no fracture or sublocation of the lumbar spine. Vertebral bodies maintain normal h eight and alignment. No suspicious bone marrow signal abnormality seen. At L1-L2, there is no significant disc bulge or herniation. There is mild facet arthropathy. No centr al canal stenosis or neural foraminal narrowing. At L2-L3, there is mild disc bulge with moderate facet arthropathy. No central canal stenosis. There is mild bilateral neural foraminal narrowing. At L3-L4, there is minimal disc bulge with moderate facet arthropathy. No central canal stenosis. The re is mild to moderate bilateral neural foraminal narrowing. At L4-L5, there is degenerative disc narrowing. There is diffuse disc bulge and moderate facet arthro guillaume. There is a superimposed focal left paracentral disc extrusion, probably impinging the descendi ng left L5-S1 level nerve root. Neural foramina at this level are preserved. At L5-S1, there is minimal disc bulge with moderate facet arthropathy. No central canal stenosis or n eural foraminal narrowing. Paravertebral soft tissues are unremarkable. Impression: Left paracentral disc extrusion at L4-L5, probably impinging the descending left L5-S1 level nerve ro ot. Additional mild degenerative spondylosis, as above. Reviewed, dictated and finalized at [facility]. Impression: Left paracentral disc extrusion at L4-L5, probably impinging the descending lef t L5-S1 level nerve root. Additional mild degenerative spondylosis, as above.
== END 2023-07-21 07:43 | disposition home or self-care (01) ==
PROVIDERS: PCP Nurse Practitioner; Visit Provider Nurse Practitioner
DX: M47.896 Other spondylosis, lumbar region (principal); M51.26 Other intervertebral disc displacement, lumbar region
CPT/HCPCS: 72148

== ENCOUNTER 2023-07-27 07:18 | Outpatient (CLI) | payer MEDICARE, SELFPAY ==
[2023-07-27 08:39] LABS: Alanine Aminotransferase 29 U/L (6-50); Albumin Level 4.6 g/dL (3.5-5.1); Alkaline Phosphatase 62 U/L (38-126); Anion Gap 5 mmol/L (8-16); Aspartate Amino Transferase 31 U/L (17-59); Blood Urea Nitrogen 11 mg/dL (9-20); Calcium 9.8 mg/dL (8.4-10.2); Carbon Dioxide 29 mmol/L (22-30); Chloride 96 mmol/L (98-107); Cholesterol 160 mg/dL (0-200); Estimated Glomerular Filt Rate > 60; Glucose 110 mg/dL (65-110); HDL Direct 48 mg/dL; Potassium 4.2 mmol/L (3.4-5.0); Sodium 130 mmol/L (137-145); Triglycerides 125 mg/dL (<150)
[2023-07-27 08:50] LABS: LDL Cholesterol Direct 87 mg/dL
[2023-07-27 09:10] LABS: Prostate Specific Antigen 2.3 ng/mL (< OR = 4.0)
[2023-07-27 10:26] LABS: Hemoglobin A1C 5.8 % (<5.7)
== END 2023-07-27 07:19 | disposition home or self-care (01) ==
PROVIDERS: PCP Nurse Practitioner; Visit Provider Nurse Practitioner
DX: E78.5 Hyperlipidemia, unspecified (principal); Z12.5 Encounter for screening for malignant neoplasm of prostate; R73.02 Impaired glucose tolerance (oral); E03.9 Hypothyroidism, unspecified
CPT/HCPCS: 36415; 80053; 80061; 83036; 84153; 84443; G0103

== ENCOUNTER 2023-10-19 08:42 | Outpatient (CLI) | payer MEDICARE, SELFPAY ==
--- NOTE | 2023-10-19 11:30 | NEURO_ITS ---
Impression: # Complains of numbness and tingling of feet. Non-diabetic. # Borderline axonal neuropathy. # Normal needle/EMG exam. # Clinical correlation recommended. Nerve Conduction Studies Anti Sensory Summary Table Stim Site NR Peak (ms) P-T Amp (?V) Site1 Site2 Delta-P (ms) Dist (cm) Robert (m/s) Left Sup Fibular Anti Sensory (Ant Lat Mall) 14 cm 3.5 9.3 14 cm Ant Lat Mall 3.5 16.0 46 Right Sup Fibular Anti Sensory (Ant Lat Mall) 14 cm 3.8 2.9 14 cm Ant Lat Mall 3.8 16.0 42 Left Sural Anti Sensory (Lat Mall) Calf 3.9 10.8 Calf Lat Mall 3.9 16.0 41 Right Sural Anti Sensory (Lat Mall) Calf 3.5 13.5 Calf Lat Mall 3.5 16.0 46 Motor Summary Table Stim Site NR Onset (ms) O-P Amp (mV) Site1 Site2 Delta-0 (ms) Dist (cm) Robert (m/s) Left Peroneal Motor (Vastus Med) Ankle 4.1 1.4 Popit Ankle 9.7 43.0 44 Popit 13.8 1.3 Right Peroneal Motor (Vastus Med) Ankle 4.1 3.7 Popit Ankle 9.7 41.0 42 Popit 13.8 2.7 Left Tibial Motor (Abd [place] Brev) Ankle 4.3 7.8 Knee Ankle 10.2 45.0 44 Knee 14.5 3.5 Right Tibial Motor (Abd [place] Brev) Ankle 4.1 5.9 Knee Ankle 10.0 43.0 43 Knee 14.1 4.3 F Wave Studies NR F-Lat (ms) L-R F-Lat (ms) Left Peroneal (Mrkrs) (EDB) 59.94 0.17 Right Peroneal (Mrkrs) (EDB) 60.11 0.17 Left Tibial (Mrkrs) (Abd Hallucis) 59.07 0.40 Right Tibial (Mrkrs) (Abd Hallucis) 59.48 0.40 EMG Side Muscle Nerve Root Ins Act Fibs Amp Dur Recrt Comment Right AntTibialis Dp Br Fibular L4-5 Nml Nml Nml Nml Nml Right Gastroc Tibial S1-2 Nml Nml Nml Nml Nml Right Fibularis Long Sup Br Fibular L5-S1 Nml Nml Nml Nml Nml Right Flex Dig Long Tibial L5-S2 Nml Nml Nml Nml Nml Right Ext Dig Brev Dp Br Fibular L5, S1 Nml Nml Nml Nml Nml Left AntTibialis Dp Br Fibular L4-5 Nml Nml Nml Nml Nml Left Gastroc Tibial S1-2 Nml Nml Nml Nml Nml Left Fibularis Long Sup Br Fibular L5-S1 Nml Nml Nml Nml Nml Left Flex Dig Long Tibial L5-S2 Nml Nml Nml Nml Nml Left Ext Dig Brev Dp Br Fibular L5, S1 Nml Nml Nml Nml Nml MTDD
== END 2023-10-19 08:43 | disposition home or self-care (01) ==
LOC: ANHNEURO 08:45
PROVIDERS: PCP Nurse Practitioner; Visit Provider Nurse Practitioner Family
DX: M54.16 Radiculopathy, lumbar region (principal)
CPT/HCPCS: 95886; 95910

== ENCOUNTER 2024-02-04 07:15 | Outpatient (CLI) | payer MEDICARE, SELFPAY ==
[2024-02-04 08:05] LABS: Hemoglobin A1C 5.7 % (<5.7)
[2024-02-04 08:06] LABS: Alanine Aminotransferase 20 U/L (6-50); Albumin Level 4.6 g/dL (3.5-5.1); Alkaline Phosphatase 49 U/L (38-126); Anion Gap 9 mmol/L (4-12); Aspartate Amino Transferase 30 U/L (17-59); Bilirubin,Total 0.7 mg/dL (0.2-1.3); Blood Urea Nitrogen 5 mg/dL (9-20); Calcium 9.3 mg/dL (8.4-10.2); Carbon Dioxide 24 mmol/L (22-30); Chloride 97 mmol/L (98-107); Cholesterol 142 mg/dL (0-200); Estimated Glomerular Filt Rate > 60; Glucose 116 mg/dL (65-110); HDL Direct 51 mg/dL; Potassium 4.3 mmol/L (3.4-5.0); Sodium 130 mmol/L (137-145); Triglycerides 108 mg/dL (<150)
[2024-02-04 08:17] LABS: LDL Cholesterol Direct 73 mg/dL
[2024-02-04 08:32] LABS: Free T4 Free Thyroxine 1.53 ng/mL (0.78-2.19)
== END 2024-02-04 07:16 | disposition home or self-care (01) ==
LOC: ANHLAB 07:17
PROVIDERS: PCP Nurse Practitioner; Visit Provider Nurse Practitioner
DX: E78.5 Hyperlipidemia, unspecified (principal); R73.02 Impaired glucose tolerance (oral); E03.9 Hypothyroidism, unspecified
CPT/HCPCS: 36415; 80053; 80061; 83036; 84439; 84443

== ENCOUNTER 2024-08-01 07:28 | Outpatient (CLI) | payer MEDICARE, SELFPAY ==
--- OUTSIDE RECORDS SUMMARY | 2024-08-01 07:32 | XMS_ITS | Clinical Summary ---
Author Organization [facility] Health Address [address] [place] [address] Care Team Providers Care Operations Specialists Name Role Phone Junaid Quesada DO Primary Care Provider [phone] Source Comments [facility],non-owned Affiliates and Associated Physician Practices is amultiple site organization consisting of ambulatory clinics and hospital sitesin [place], [place], [place] and [place]. This disclosure is being madepursuant to the Care Everywhere program and may not contain all information available regarding this patient. Last updated 18.[facility] Allergies No known active allergies Social History Tobacco Use Types Packs/Day Years Used Date Smoking Tobacco: Never Assessed Sex and Gender Information Value Date Recorded Sex Assigned at Not on file Gender Identity Not on file Sexual Orientation Not on file Last Filed Vital Signs Vital Sign Reading Time Taken Comments Blood Pressure 141/81 06/02/2017 11:30 AM LOCKER ROOM MANAGER Pulse 62 06/02/2017 11:30 AM LOCKER ROOM MANAGER Temperature 36.7 C (98 F) 06/02/2017 11:38 AM LOCKER ROOM MANAGER Respiratory Rate 17 06/02/2017 11:38 AM LOCKER ROOM MANAGER Oxygen Saturation 100% 06/02/2017 11:38 AM LOCKER ROOM MANAGER Inhaled Oxygen Concentration - - Weight 90.7 kg (200 lb) 06/02/2017 8:20 AM LOCKER ROOM MANAGER Height 185.4 cm (6' 1 ) 06/02/2017 8:20 AM LOCKER ROOM MANAGER Body Mass Index 26.39 06/02/2017 8:20 AM LOCKER ROOM MANAGER Plan of Treatment Health Maintenance Due Date Last Done Comments COLOGUARD (AGES 45-75) - COL ON CA SCREENING 1955 COLON MONITORING 1955 COLONOSCOPY - COLON CA SCREENING 1955 CT COLONOGRAPHY - COLON CA SCREENING 1955 Colorectal Cancer Screening 1955 FIT - COLON CA SCREENING 1955 FLEX SIG - COLON CA SCREENING 1955 LIPID TESTING 1955 HEPATITIS C SCREENING 03/06/1971 DTAP/TDAP/TD VACCINES (1 - Tdap) 1972 PNEUMOCOCCAL VACCINE 50+ (1 of 1 - PCV) 2003 ZOSTER VACCINE (1 of 2) 2003 COVID-19 VACCINE (1 - 2023-2 5 season) 2024 INFLUENZA VACCINE (#1) 2024 DEPRESSION SCREENING 05/10/2024 MEDICARE AWV CALENDAR YEAR 2024 Respiratory Syncytial Virus (RSV) Vaccine Pt: or over 60 yrs (1 - 1-dose 75+ series) 2028 HEPATITIS B VACCINE Aged Out No longe r eligible based on patient's age to complete this topic HIB VACCINE Aged Out No longer eligi ble based on patient's age to complete this topic HPV VACCINE Aged Out No longer eligi ble based on patient's age to complete this topic MENINGOCOCCAL (Group B) VACC INE SHARED DECISION-MAKING Aged Out No longer eligibl e based on patient's age to complete this topic MENINGOCOCCAL GROUPS A/C/Y/W VACCINE Aged Out No longer eligible b ased on patient's age to complete this topic Care Teams Operations Specialists Relationship Specialty Start Date End Date Junaid Quesada DO [address] [place] [address] PCP - General 04/06/22
[2024-08-01 08:55] LABS: Alanine Aminotransferase 22 U/L (6-50); Albumin Level 4.7 g/dL (3.5-5.1); Alkaline Phosphatase 55 U/L (38-126); Anion Gap 12 mmol/L (4-12); Aspartate Amino Transferase 29 U/L (17-59); Bilirubin,Total 0.6 mg/dL (0.2-1.3); Blood Urea Nitrogen 5 mg/dL (9-20); Calcium 9.5 mg/dL (8.4-10.2); Carbon Dioxide 26 mmol/L (22-30); Chloride 95 mmol/L (98-107); Cholesterol 155 mg/dL (0-200); Estimated Glomerular Filt Rate > 60; Glucose 113 mg/dL (65-110); HDL Direct 53 mg/dL; Potassium 4.4 mmol/L (3.4-5.0); Sodium 133 mmol/L (137-145); Triglycerides 91 mg/dL (<150)
[2024-08-01 09:06] LABS: LDL Cholesterol Direct 78 mg/dL
[2024-08-01 09:51] LABS: Hemoglobin A1C 5.5 % (<5.7)
== END 2024-08-01 07:29 | disposition home or self-care (01) ==
PROVIDERS: PCP Nurse Practitioner; Visit Provider Nurse Practitioner
DX: E78.5 Hyperlipidemia, unspecified (principal); R73.02 Impaired glucose tolerance (oral)
CPT/HCPCS: 36415; 80053; 80061; 83036

== ENCOUNTER 2025-02-12 08:04 | Outpatient (CLI) | payer MEDICARE, SELFPAY ==
[2025-02-12 08:44] LABS: Hemoglobin A1C 5.5 % (<5.7)
[2025-02-12 08:47] LABS: Alanine Aminotransferase 25 U/L (6-50); Albumin Level 4.3 g/dL (3.5-5.1); Alkaline Phosphatase 57 U/L (38-126); Anion Gap 7 mmol/L (4-12); Aspartate Amino Transferase 32 U/L (17-59); Bilirubin,Total 0.4 mg/dL (0.2-1.3); Blood Urea Nitrogen 2 mg/dL (9-20); Calcium 9.3 mg/dL (8.4-10.2); Carbon Dioxide 26 mmol/L (22-30); Chloride 96 mmol/L (98-107); Cholesterol 142 mg/dL (0-200); Estimated Glomerular Filt Rate > 60; Glucose 111 mg/dL (65-110); HDL Direct 52 mg/dL; Potassium 4.4 mmol/L (3.4-5.0); Sodium 129 mmol/L (137-145); Total Protein 7.4 g/dL (6.3-8.2); Triglycerides 81 mg/dL (<150)
[2025-02-12 09:04] LABS: Free T4 Free Thyroxine 1.34 ng/dL (0.78-2.19)
[2025-02-12 09:23] LABS: Prostate Specific Antigen 1.7 ng/mL (< OR = 4.0); Thyroid Stimulating Hormone 2.880 uIU/mL (0.465-4.680)
== END 2025-02-12 08:05 | disposition home or self-care (01) ==
PROVIDERS: PCP Nurse Practitioner; Visit Provider Nurse Practitioner
DX: E03.9 Hypothyroidism, unspecified (principal); Z12.5 Encounter for screening for malignant neoplasm of prostate; E78.5 Hyperlipidemia, unspecified; R73.02 Impaired glucose tolerance (oral)
CPT/HCPCS: 36415; 80053; 80061; 83036; 84153; 84439; 84443; G0103

== ENCOUNTER 2025-03-01 08:10 | Outpatient (CLI) | payer MEDICARE, SELFPAY ==
--- OUTSIDE RECORDS SUMMARY | 2025-03-01 08:19 | XMS_ITS | Clinical Summary ---
Author Organization [facility] Health Address [address] [place] [address] Care Team Providers Care Pallet Sorter Name Role Phone Junaid Quesada DO Primary Care Provider [phone] Source Comments [facility],non-owned Affiliates and Associated Physician Practices is amultiple site organization consisting of ambulatory clinics and hospital sitesin [place], [place], [place] and [place]. This disclosure is being madepursuant to the Care Everywhere program and may not contain all information available regarding this patient. Last updated 18.[facility] Allergies No known active allergies Social History Tobacco Use Types Packs/Day Years Used Date Smoking Tobacco: Never Assessed Sex and Gender Information Value Date Recorded Sex Assigned at Not on file Legal Sex Male 2:34 PM CDT Gender Identity Not on file Sexual Orientation Not on file Last Filed Vital Signs Vital Sign Reading Time Taken Comments Blood Pressure 141/81 06/02/2017 11:30 AM [employer] Pulse 62 06/02/2017 11:30 AM [employer] Temperature 36.7 C (98 F) 06/02/2017 11:38 AM [employer] Respiratory Rate 17 06/02/2017 11:38 AM [employer] Oxygen Saturation 100% 06/02/2017 11:38 AM [employer] Inhaled Oxygen Concentration - - Weight 90.7 kg (200 lb) 06/02/2017 8:20 AM [employer] Height 185.4 cm (6' 1) 06/02/2017 8:20 AM [employer] Body Mass Index 26.39 06/02/2017 8:20 AM [employer] Plan of Treatment Health Maintenance Due Date [...] 2003 ZOSTER VACCINE (1 of 2) 2003 DEPRESSION SCREENING 05/10/2024 COVID-19 VACCINE (1 - 2023-2 5 season) 2025 INFLUENZA VACCINE (#1) 2025 Respiratory Syncytial Virus (RSV) Vaccine Pt: or [...] on patient's age to complete this topic Insurance [facility] MANAG[facility] MEDICARE ADV Care Teams Pallet Sorter Relationship Specialty Start Date End Date Junaid Quesada DO [address] [place] [address] PCP - General 04/06/22
[2025-03-01 09:19] LABS: Anion Gap 8 mmol/L (4-12); Blood Urea Nitrogen 4 mg/dL (9-20); Calcium 9.6 mg/dL (8.4-10.2); Carbon Dioxide 28 mmol/L (22-30); Chloride 96 mmol/L (98-107); Estimated Glomerular Filt Rate > 60; Glucose 108 mg/dL (65-110); Potassium 4.5 mmol/L (3.4-5.0); Sodium 132 mmol/L (137-145)
== END 2025-03-01 08:11 | disposition home or self-care (01) ==
LOC: ANHLAB 08:13
PROVIDERS: PCP Nurse Practitioner; Visit Provider Nurse Practitioner
DX: E87.1 Hypo-osmolality and hyponatremia (principal); E55.9 Vitamin D deficiency, unspecified
CPT/HCPCS: 36415; 80048; 82306